=== PATIENT | male | born 1960 | race Hispanic/Latino ===

== ENCOUNTER 2019-07-03 06:09 | Outpatient (CLI) | payer OTHER ==
[2019-07-03 11:02] LABS: #Eosinphils 0.1 thou/uL (0.0-0.7); #Lymphocytes 1.1 thou/uL (1.20-3.40); #Monocytes 0.5 thou/uL (0.11-0.59); #Neutrophils 3.7 thou/uL (1.40-6.50); %Basophils 0.7 % (0.0-1.0); %Eosinophils 1.8 % (0.0-10.0); %Monocytes 9.2 % (0.0-10.0); %Neutrophils 68.4 % (42.0-75.0); Hemoglobin 15.3 g/dL (14.0-18.0); Mean Corpuscular HGB CONC 33.7 g/dL (32.0-36.0); Mean Corpuscular Hemoglobin 29.4 pg (27.0-31.0); Mean Corpuscular Volume 87.3 fL (78.0-98.0); Mean Platelet Volume 7.8 fL (7.4-10.4); Platelet Count 218 thou/uL (130-400); RBC Distribution Width 13.3 % (11.5-14.5); White Blood Cell (WBC) Count 5.4 thou/uL (4.8-10.8)
[2019-07-03 11:18] LABS: Anion Gap 15 mmol/L (10-20); BUN (Urea Nitrogen) 16 mg/dL (8.4-25.7); Calc. Creatinine Clearance 0 mL/min (70-130); Carbon Dioxide 19 mmol/L (22-29); Chloride 104 mmol/L (98-107); Estimated GFR-MDRD 86; Glucose 142 mg/dL (70-105); Sodium 134 mmol/L (136-145)
[2019-07-03 18:41] LABS: SARS-CoV-2 MS2 Positive; SARS-CoV-2 N Gene Negative; SARS-CoV-2 S Gene Negative; SARS-CoV-2 orf1ab Negative
--- NOTE | 2019-07-03 21:09 | EKG ---
Test Reason : Blood Pressure : / mmHG Vent. Rate : 064 BPM Atrial Rate : 064 BPM P-R Int : 162 ms QRS Dur : 088 ms QT Int : 386 ms P-R-T Axes : 031 029 015 degrees QTc Int : 398 ms Normal sinus rhythm Normal ECG Confirmed by Winston GARCIA ([id number] on 07/03/2019 9:09:11 PM Referred By: CHENTE Confirmed By:Winston GARCIA
== END 2019-07-03 06:10 | disposition home or self-care (01) ==
LOC: LABBT 06:09
PROVIDERS: ATTEND Surgery
DX: Z01.818 Encounter for other preprocedural examination (principal); Z11.59 Encounter for screening for other viral diseases; K29.00 Acute gastritis without bleeding; K95.09 Other complications of gastric band procedure
CPT/HCPCS: 80048; 85025; 87635; 93005; 93010; U0003

== ENCOUNTER 2019-07-04 10:24 | Day surgery (SDC) | payer OTHER ==
[2019-07-03 08:36] VITALS: BMI 37.4
[2019-07-04] MEDS ORDERED: Lidocaine 1% w/Epinephrine 1:100K 20 ML VIAL ONE (11:45)
[2019-07-04] MEDS ORDERED: Bupivacaine 0.25% HCL 30 ML VIAL ONE (11:45)
[2019-07-04] MEDS ORDERED: Fentanyl 100 MCG/2 ML VIAL ONE ×3 (12:37→14:20)
[2019-07-04] MEDS ORDERED: SUGAMMADEX SODIUM 200 MG/2 ML VIAL ONE (12:37)
[2019-07-04] MEDS ORDERED: Glycopyrrolate 0.2 MG/ML 5 ML SYRINGE ONE (16:05)
[2019-07-04] MEDS ORDERED: Lidocaine 1% PF 5 ML VIAL ONE (16:05)
[2019-07-04] MEDS ORDERED: Ondansetron PF 4 MG/2 ML Vial ONE (16:05)
[2019-07-04] MEDS ORDERED: PROPOFOL 200 MG/20 ML VIAL ONE (16:05)
[2019-07-04] MEDS ORDERED: Rocuronium Bromide 10 MG/ML (10ML VIAL) ONE (16:05)
[2019-07-04] MEDS ORDERED: Labetalol HCl 100 MG/20 ML VIAL ONE (16:05)
[2019-07-04] MEDS ORDERED: Dexamethasone 20 MG/5 ML VIAL ONE (16:05)
--- NOTE | 2019-07-04 20:14 | OP ---
DATE OF PROCEDURE: 07/04/2019 PREOPERATIVE DIAGNOSIS: Lap band dysfunction, esophagitis POSTOPERATIVE DIAGNOSIS: Lap band dysfunction, esophagitis. PROCEDURES PERFORMED: Removal of lap band and subcutaneous port, laparoscopic lysis of adhesions. ANESTHESIA: General. ESTIMATED BLOOD LOSS: Minimal. COMPLICATIONS: None. SPECIMENS: None. FINDINGS: Adhesions to previous mesh. DESCRIPTION OF PROCEDURE: The patient was taken to the operating room and laid supine on the operating room table. After general anesthetic was obtained, the abdomen was shaved, prepped, and draped in a sterile fashion. Left subcostal 5 mm Optiview trocar was placed in usual fashion without injury and high-flow pneumoperitoneum was obtained. An upper midline 2 right upper quadrant 5 mm ports as well as a 12 mm port was placed in the upper abdomen. The liver was retracted as the tissues over the top of the lap band buckle are cauterized exposing the buckle. The band was able to be unbuckled. The tubing was cut as it exits the abdomen. The lap band was able to be taken from behind the stomach and it was removed from the 12 mm trocar site. This trocar site was closed using GraNee needle and 0 Vicryl tie. There was no bleeding in the abdomen. The 12 mm trocar site was closed using GraNee needle and 0 Vicryl tie. All port sites were infiltrated using local anesthetic. All ports were removed under camera visualization. Pneumoperitoneum was let down. Lap band port site was opened and the lap band port was removed from the muscle. The lap band and port were re-created on the back table. All ports appeared to be accounted for. All incisions were irrigated and closed using 3-0 Vicryl, 4-0 Monocryl and Dermabond. The patient was sent to Recovery in stable condition. All instrument counts, needle counts, and lap counts were correct. Job ID: [id number]
== END 2019-07-04 16:05 | disposition home or self-care (01) ==
LOC: SDC 10:24
PROVIDERS: ATTEND Surgery
PROC: 0DP64CZ Removal of Extraluminal Device from Stomach, Percutaneous Endoscopic Approach (ICD-10-PCS; principal; 2019-07-04)
DX: K95.09 Other complications of gastric band procedure (principal); K66.0 Peritoneal adhesions (postprocedural) (postinfection); K29.00 Acute gastritis without bleeding; K21.0 Gastro-esophageal reflux disease with esophagitis; I10 Essential (primary) hypertension; E66.9 Obesity, unspecified; Z68.37 Body mass index [BMI] 37.0-37.9, adult; Z79.899 Other long term (current) drug therapy; Z90.49 Acquired absence of other specified parts of digestive tract
CPT/HCPCS: J0690; J1100; J2001; J2405; J2704; J3010; S0020

== ENCOUNTER 2020-01-31 12:30 | Emergency (ER) | payer OTHER ==
[2020-01-31] MEDS ORDERED: Acetaminophen 500 MG TAB ONE (14:55)
[2020-01-31 15:34] LABS: Hemoglobin 16.3 g/dL (14.0-18.0); Mean Corpuscular HGB CONC 33.9 g/dL (32.0-36.0); Mean Corpuscular Hemoglobin 29.4 pg (27.0-31.0); Mean Corpuscular Volume 86.7 fL (78.0-98.0); RBC Distribution Width 12.8 % (11.5-14.5); Red Blood Cell (RBC) Count 5.55 mill/uL (4.70-6.10); White Blood Cell (WBC) Count 4.5 thou/uL (4.8-10.8)
[2020-01-31 15:35] LABS: #Lymphocytes 0.9 thou/uL (1.20-3.40); #Monocytes 0.4 thou/uL (0.11-0.59); #Neutrophils 3.2 thou/uL (1.40-6.50); %Basophils 0.4 % (0.0-1.0); %Eosinophils 0.2 % (0.0-10.0); %Lymphocytes 20.1 % (21.0-51.0); %Monocytes 8.7 % (0.0-10.0); %Neutrophils 70.5 % (42.0-75.0)
--- NOTE | 2020-01-31 15:48 | RAD ---
Exam: Chest one view HISTORY:Cough. Shortness of breath and fever. Negative COVID test. Comparison: None FINDINGS: Cardiac silhouette: Normal Aorta: Unremarkable Pulmonary vessels: Normal Costophrenic angles: Clear LUNGS: Patchy interstitial and alveolar opacities in the left and right perihilar region. Lungs are s lightly diminished. Pneumothorax: None Osseous abnormalities: None IMPRESSION: Bilateral perihilar interstitial and alveolar opacities. Correlate for infiltrate.
[2020-01-31 15:59] LABS: MDiff Complete? YES; Platelet Count 118 thou/uL (130-400); Platelet Morphology Comment Appears Decreased; Polychromasia SLIGHT = 2-3 cells (100X) (0-2/hpf)
[2020-01-31 16:30] LABS: Alkaline Phosphatase 64 U/L (40-110)
[2020-01-31 16:33] LABS: ALT (SGPT) 19 U/L (8-55)
[2020-01-31 16:37] LABS: AST (SGOT) 35 U/L (5-34); Anion Gap 19 mmol/L (10-20); BUN (Urea Nitrogen) 24 mg/dL (8.4-25.7); Bilirubin, Total 0.5 mg/dL (0.2-1.2); Calc. Creatinine Clearance 0 mL/min (70-130); Calcium 8.5 mg/dL (7.8-10.44); Carbon Dioxide 17 mmol/L (22-29); Chloride 99 mmol/L (98-107); Globulin 3.5 g/dL (2.4-3.5); Glucose 133 mg/dL (70-105); Potassium 4.5 mmol/L (3.5-5.1); Protein, Total 7.5 g/dL (6.0-8.3); Sodium 130 mmol/L (136-145)
[2020-01-31] MEDS ORDERED: Dexamethasone 10 MG/ML VIAL ONE (17:48)
--- NOTE | 2020-02-02 14:50 | EKG ---
Test Reason : Blood Pressure : / mmHG Vent. Rate : 091 BPM Atrial Rate : 091 BPM P-R Int : 164 ms QRS Dur : 076 ms QT Int : 358 ms P-R-T Axes : 050 003 002 degrees QTc Int : 440 ms Normal sinus rhythm Normal ECG Confirmed by TI ENCARNACION M.D. ([id number]), subeditor EDWIN KATHLEEN ([id number]) on 02/02/2020 2:50:19 PM Referred By: Confirmed By:TI ENCARNACION M.D.
== END 2020-01-31 18:13 | disposition home or self-care (01) ==
LOC: ERS 12:30
DX: U07.1 COVID-19 (principal); J12.89 Other viral pneumonia; I10 Essential (primary) hypertension; Z79.899 Other long term (current) drug therapy
CPT/HCPCS: 71045; 80053; 83880; 84484; 85025; 93005; 96374; J1100

== ENCOUNTER 2020-02-02 20:37 | Inpatient (IN) | payer OTHER ==
[~2020-02-02 20:37] MED LIST: Iopamidol-370 76% 500 ML 1 ML ONE
[2020-02-02] MEDS ORDERED: Piperacillin/Tazobactam 4.5 GM VIAL ONE (21:11)
[2020-02-02 21:24] LABS: Hemoglobin 15.9 g/dL (14.0-18.0); Mean Corpuscular HGB CONC 34.8 g/dL (32.0-36.0); Mean Corpuscular Hemoglobin 29.3 pg (27.0-31.0); Mean Corpuscular Volume 84.3 fL (78.0-98.0); RBC Distribution Width 12.8 % (11.5-14.5); Red Blood Cell (RBC) Count 5.42 mill/uL (4.70-6.10)
[2020-02-02 21:30] LABS: ALT (SGPT) 20 U/L (8-55); AST (SGOT) 28 U/L (5-34); Acetaminophen Less than 6.0 mcg/mL (10.0-30.0); Albumin 4.1 g/dL (3.5-5.0); Alcohol Less than 10 mg/dL (Less than 10); Alkaline Phosphatase 70 U/L (40-110); Anion Gap 21 mmol/L (10-20); BUN (Urea Nitrogen) 33 mg/dL (8.4-25.7); Bilirubin, Total 0.5 mg/dL (0.2-1.2); Calc. Creatinine Clearance 0 mL/min (70-130); Calcium 8.7 mg/dL (7.8-10.44); Carbon Dioxide 18 mmol/L (22-29); Chloride 100 mmol/L (98-107); Globulin 2.9 g/dL (2.4-3.5); Glucose 180 mg/dL (70-105); Lipase 68 U/L (8-78); Potassium 3.9 mmol/L (3.5-5.1); Salicylate Less than 8.0 mg/dL (15.0-30.0); Sodium 135 mmol/L (136-145)
[2020-02-02 21:31] LABS: Band 15 % (5-11); Lymphocytes 15 % (21-51); MDiff Complete? YES; Mean Platelet Volume 8.8 fL (7.4-10.4); Monocytes 1 % (0-10); Neutrophil 69 % (42-75); Platelet Count 170 thou/uL (130-400); White Blood Cell (WBC) Count 10.1 thou/uL (4.8-10.8)
--- NOTE | 2020-02-02 21:47 | RAD ---
EXAM: CHEST ONE VIEW HISTORY: Shortness of breath, fever, headache. Cough. COMPARISON: 01/31/2020 FINDINGS: Cardiac silhouette is magnified by projection. Again noted are patchy interstitial and alveolar paren chymal opacities in the left mid lung zone and left lung base. There are now minimal patchy parenchymal airspace densities present in the right midlung zone. No other interval change. IMPRESSION: 1. Interstitial and patchy parenchymal airspace opacities within the lungs bilaterally which do appea r mildly increased. Findings are worrisome for infectious process and possibly atypical infectious process. Covid pneumonia in the correct clinical scenario is a differential consideration.
[2020-02-02] MEDS ORDERED: Vancomycin 1 GM/200 ML BAG ONE (22:04)
--- NOTE | 2020-02-02 22:18 | CT ---
EXAM: CT Aortic Dissection Protocol 3-D reconstructions PROVIDED CLINICAL HISTORY: Chest pain and abdominal pain. Nausea. COMPARISON: None FINDINGS: The thoracic and abdominal aorta are normal in caliber without evidence of an aortic dissection. Mini mal vascular calcifications are seen in the aortic arch as well as involving the iliac arteries. There is eccentric atherosclerotic plaque seen within the proximal superior mesenteric artery which d oes result in mild luminal narrowing. The celiac and inferior mesenteric arteries are patent. There are at least 3 patent right renal arteries with 2 right patent renal arteries. Iliac arteries and bilateral common femoral arteries as well as the visualized proximal profunda femo ral and superficial femoral arteries are patent. Lung apices are not imaged on this exam. There are patchy groundglass densities seen within the lungs bilaterally with associated linear parenchymal densities as well. Findings are suggestive of Covid pneumonia. No pleural effusion is identified. There is mild soft tissue prominence in each hilar region which may related to reactive lymphadenopat hy. Liver demonstrates diminished attenuation suggesting fatty infiltration. Postcholecystectomy changes are noted. The spleen, pancreas, bilateral adrenal glands, and urinary bladder demonstrate a normal CT appearanc e. Colonic diverticulosis is present involving the descending colon. 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 Postoperative changes of a loop of small bowel in the anterior abdomen are noted with mild dilatation of this loop of bowel. Rem aining loops of small bowel are normal in caliber. Metallic densities in the anterior abdomen likely related to mesh material. No free fluid, fluid collection, or lymphadenopathy is seen in the abdomen or pelvis. Degenerative changes are seen in the spine. IMPRESSION: 1. Parenchymal lung changes which have the appearance most suggestive of Covid pneumonia. 2. Thoracic and abdominal aorta are normal in caliber without evidence of an aortic dissection. 3. Mild fatty infiltration the liver. 4. Postcholecystectomy changes. 5. Postoperative changes anterior abdomen as well as postoperative changes involving a loop of small bowel. 6. Colonic diverticulosis. 7. 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
[2020-02-02 22:34] LABS: SARS-CoV-2 NAA Rapid Test DETECTED (NotDetected)
[2020-02-02] MEDS ORDERED: Enoxaparin Sodium 30 MG/0.3 ML SYRINGE ONE ×2 (22:55→23:18)
[2020-02-02] MEDS ORDERED: Enoxaparin Sodium 100 MG/ML SYRINGE ONE (22:55)
[2020-02-02] MEDS ORDERED: Dexamethasone 10 MG/ML VIAL ONE (23:02)
[2020-02-02] MEDS ORDERED: Enoxaparin Sodium 80 MG/0.8 ML SYRINGE ONE (23:20)
[2020-02-02] MEDS ORDERED: Ondansetron PF 4 MG/2 ML Vial IVP PRN (23:58)
[2020-02-02] MEDS ORDERED: Ondansetron ODT 4 MG TAB PO PRN (23:58)
[2020-02-03 00:01] LABS: Lactic Acid 1.5 mmol/L (0.5-2.2)
[2020-02-03 01:48] LABS: Bilirubin Negative (Negative); Blood, Urine Negative (Negative); Clarity Clear (Clear); Glucose, Urine (Dipstick) 100 mg/dL (Negative); Ketone, Urine Negative (Negative); Leukocyte Negative Leu/uL (Negative); Nitrite Negative (Negative); Protein, Urine (Dipstick) Negative (Neg-Trace); Specific Gravity, Urine 1.038 (1.002-1.036); Urobilinogen Normal mg/dL (Less than 2); pH, Urine 5.5 (5.0-9.0)
[2020-02-03 02:02] LABS: Amphetamine Not Detected (NotDetected); Barbiturates Screen Not Detected (NotDetected); Benzodiazepine Screen Not Detected (NotDetected); Cocaine Metabolite Screen Not Detected (NotDetected); Medtox Control Line Valid? VALID (VALID); Medtox Reader # READER 4; Methadone Not Detected (NotDetected); Methamphetamine Not Detected (NotDetected); Opiate Screen Not Detected (NotDetected); Oxycodone Screen Not Detected (NotDetected); Phencyclidine (PCP) Not Detected (NotDetected); THC/Cannabinoid Screen Not Detected (NotDetected); Tricyclic Screen Not Detected (NotDetected)
--- NOTE | 2020-02-03 02:23 | PDOC.HHP ---
Hospitalist HPI - History of Present Illness Generalized weakness, syncope History of Present Illness: This is a 59-year-old male patient With a history of hypertension, hernia who presents with chest discomfort and abdominal pain for the past couple of days. He notes that his had tested positive for Covid couple of weeks ago. His test came out positive in the ED today Given his discomfort in his chest and abdomen he presented to the ED for further evaluation this evening. While in the waiting room he had a syncopal event which he is not aware of. He was noted to be hypotensive with initial BP 57/39 and started on IV fluids with good response. He was otherwise slightly febrile with temperature of 100.4, pulse was 81-87, respiratory rate ranging between 25 and 27, saturating 100% on room air. CBC was generally unremarkable BMP noted an anion gap Of 17, creatinine 1.67 from a baseline of 1.17 on 01/31/2020 urine was not indicative of UTI, urine drug screen was negative, Covid test turned out positive however D-dimer was within normal limits. Chest x-ray was suggestive of bilateral infiltrates concerning for Covid. There was an initial concern of possible dissection and he had a CTA which ruled out dissection. At the time of my evaluation patient was lying comfortably in bed he has mild chest discomfort. He admits generalized malaise and shortness of breath but however significantly improved. In the ED he was started on Dexamethasone, enoxaparin, vancomycin and Zosyn. He received 30 mils per KG bolus IV fluids due to concern for sepsis Hospitalist ROS - Review of Systems Constitutional: reports: fever, weakness, malaise. denies: chills, sweats Respiratory: reports: shortness of breath, hemoptysis, SOB with excertion. denies: cough Cardiovascular: reports: chest pain, palpitations Gastrointestinal: reports: abdominal pain. denies: nausea, vomiting, diarrhea, constipation Genitourinary: denies: dysuria, frequency, incontinence Neurological: denies: weakness, numbness, incoordination All other systems reviewed; all pertinent +/- noted in HPI/Subj - Medication Medications: Kindly refer to ambulatory order list He has no known drug allergies Hospitalist History - Past Medical History Cardiac: reports: HTN Gastrointestinal: reports: Gastritis - Past Surgical History Past Surgical History: reports: Other Other Surgical History: Gastric banding, removal of lab band - Family History Family History: reports: no pertinent history - Social History Smoking Status: Never smoker Alcohol: reports: None Drugs: reports: none Living Situation: With Family - Exam General Appearance: awake alert General - other findings: Obese Eye: PERRL, anicteric sclera Heart: RRR, no murmur, no gallops, no rubs Respiratory - other findings: Reduced air entry bilaterally, scattered wheezes, rhonchi Gastrointestinal: soft, non-tender, non-distended, normal bowel sounds Gastrointestinal - other findings: Abdomen is obese, surgical scar in the epig astrium. Extremities: no cyanosis, no clubbing, no edema Neurological: cranial nerve grossly intact, normal sensation to touch, no weakness Psychiatric: normal affect, normal behavior, A&O x 3 Hospitalist Results - Labs Result Diagrams: 02/03/20 03:18 02/03/20 03:18 Lab results: WBC 10.1 thou/uL (4.8-10.8) 02/02/20 20:56 Hgb 15.9 g/dL (14.0-18.0) 02/02/20 20:56 Hct 45.7 % (42.0-52.0) 02/02/20 20:56 MCV 84.3 fL (78.0-98.0) 02/02/20 20:56 Plt Count 170 thou/uL (130-400) 02/02/20 20:56 Band Neuts % (Manual) 15 % (5-11) H 02/02/20 20:56 Sodium 135 mmol/L (136-145) L 02/02/20 20:56 Potassium 3.9 mmol/L (3.5-5.1) 02/02/20 20:56 Chloride 100 mmol/L (98-107) 02/02/20 20:56 Carbon Dioxide 18 mmol/L (22-29) L 02/02/20 20:56 BUN 33 mg/dL (8.4-25.7) H 02/02/20 20:56 Creatinine 1.67 mg/dL (0.7-1.3) H 02/02/20 20:56 Glucose 180 mg/dL (70-105) H 02/02/20 20:56 Lactic Acid 1.5 mmol/L (0.5-2.2) 12/19/20 23:38 Calcium 8.7 mg/dL (7.8-10.44) 02/02/20 20:56 Total Bilirubin 0.5 mg/dL (0.2-1.2) 02/02/20 20:56 AST 28 U/L (5-34) 02/02/20 20:56 ALT 20 U/L (8-55) 02/02/20 20:56 Alkaline Phosphatase 70 U/L (40-110) 02/02/20 20:56 Troponin I 0.023 ng/mL (< 0.028) 02/02/20 20:56 Serum Total Protein 7.0 g/dL (6.0-8.3) 02/02/20 20:56 Albumin 4.1 g/dL (3.5-5.0) 02/02/20 20:56 Lipase 68 U/L (8-78) 02/02/20 20:56 Urine Ketones Negative mg/dL (Negative) 02/03/20 01:20 Urine Blood Negative (Negative) 02/03/20 01:20 Urine Nitrite Negative (Negative) 02/03/20 01:20 Ur Leukocyte Esterase Negative Jose/uL (Negative) 02/03/20 01:20 Hospitalist H&P A/P - Plan Plan: This is a 59-year-old male patient with a history of hypertension presenting with worsening malaise, shortness of breath and syncopal event at presentation. He tested positive for Covid 19 with suggestive infiltrates on chest x-ray. Possible sepsis Hypotension with tachypnea and fever This may be due to Covid Blood cultures have been drawn Started on vancomycin and Zosyn We will continue antibiotics for nowfollow-up on blood cultures Appreciate ID input Covid pneumonia Received dexamethasone in ED He has mild fever with general malaise. We will start on zinc and vitamins Hold remdesivir as he does not meet criteria Consider statin convalescent plasma Consult ID to help decide initiation of remdesivir/plasma Hypotension Initial concerns for PE however D-dimer is within normal range PE is probably unlikely although possible in the setting of Covid We will hold CTA for now given prior contrast exposure for dissection protocol Hold full dose anticoagulation Chest pain Likely due to pneumonia from Covid Does not appear to have ACS Troponin was negative Syncope Unclear etiology Resolved with IV fluid We will monitor telemetry DVT prophylaxisLovenox CODE STATUSfull code
[2020-02-03 03:39] LABS: Anion Gap 16 mmol/L (10-20); BUN (Urea Nitrogen) 29 mg/dL (8.4-25.7); Calc. Creatinine Clearance 0 mL/min (70-130); Calcium 7.4 mg/dL (7.8-10.44); Carbon Dioxide 15 mmol/L (22-29); Chloride 105 mmol/L (98-107); Glucose 281 mg/dL (70-105); Potassium 3.6 mmol/L (3.5-5.1); Sodium 132 mmol/L (136-145)
[2020-02-03 04:06] LABS: #Lymphocytes 0.3 thou/uL (1.20-3.40); #Monocytes 0.2 thou/uL (0.11-0.59); #Neutrophils 4.9 thou/uL (1.40-6.50); %Basophils 0.2 % (0.0-1.0); %Eosinophils 0.5 % (0.0-10.0); %Lymphocytes 5.6 % (21.0-51.0); %Monocytes 3.7 % (0.0-10.0); %Neutrophils 90.1 % (42.0-75.0); Hemoglobin 14.5 g/dL (14.0-18.0); Mean Corpuscular HGB CONC 34.5 g/dL (32.0-36.0); Mean Corpuscular Hemoglobin 29.7 pg (27.0-31.0); Mean Corpuscular Volume 85.9 fL (78.0-98.0); Mean Platelet Volume 8.1 fL (7.4-10.4); Platelet Count 107 thou/uL (130-400); Platelet Morphology Comment Appears Decreased; RBC Distribution Width 12.9 % (11.5-14.5); Red Blood Cell (RBC) Count 4.89 mill/uL (4.70-6.10); White Blood Cell (WBC) Count 5.5 thou/uL (4.8-10.8)
[2020-02-03 05:05] VITALS: BMI 37.5
--- NOTE | 2020-02-03 05:52 | PDOC.FMACP ---
Advance Care Planning - Note Summary: Advanced Care Planning was discussed. The diagnosis, prognosis and goals of care were discussed. Surrogate decision maker is his . Code status is full code
[2020-02-03] MEDS: Piperacillin/Tazobactam 4.5 GM in Sodium Chloride 0.9% 100 ML IVPB SCH ×2 (06:21→16:30)
[2020-02-03] MEDS: Ascorbic Acid 500 mg Chewable Tablet PO SCH (08:18)
[2020-02-03] MEDS: Enoxaparin Sodium 40 MG/0.4 ML SYRINGE SC SCH (08:18)
[2020-02-03] MEDS: Cholecalciferol (Vitamin D3) 400 UNITS TAB PO SCH (08:19)
[2020-02-03] MEDS: Zinc Sulfate 220 MG CAP PO SCH (08:19)
[2020-02-03] MEDS ORDERED: Enoxaparin Sodium 40 MG/0.4 ML SYRINGE SC SCH (09:00)
[2020-02-03] MEDS ORDERED: Dexamethasone 4 mg/ml Vial SLOW IVP SCH (09:00)
--- NOTE | 2020-02-03 12:02 | PDOC.BPN ---
- Brief Progress Note Encounter Date: 02/03/20 Encounter Time: 12:00 F/u: COVID The patient reports mild improvement. He says he had chest pain which resolved. He is still coughing a lot, complains of mostly a dry cough. He ambulated to the bathroom without dizziness or lightheadedness. He complains of a headache and is requesting tylenol General: patient alert, awake, oriented times three. Appears relatively tachypneic CV: RRR, no murmurs, rubs, gallops Lungs: diminished breath sounds bilaterally Abdomen: +BS, soft, nontender, nondistended Extremities: no edema Imaging: CT dissection: mild fatty liver. Colonic diverticulosis. Incomplete malrotatio nof the bowel. Chest X ray: interstitial and patchy parenchymal opacities within the lungs bilaterally This is a 59 year old male with past medical history of hypertension who presented with hypotension and syncopal episode, chest pain and abdominal pain, recently COVID+ #Sepsis secondary to pneumonia (COVID vs bacterial) #COVID infection - still has significant cough and bilateral lung opacities. Adding tessalon pearls scheduled. Not requiring oxygen, so will d/c IV steroids and switch to oral - started on IV zosyn due to fever and hypotension. Will continue for now and consider switching to oral antibiotics tomorrow - ID has been consulted as well for evaluation of remdesivir. Will discontinue convalescent plasma Hyponatremia - sodium down to 132, possibly from fluids. Will recheck tomorrow JESSICA - resolved, likely from hypotension Hypertension - will hold home medications for now Dispo: will monitor for 24 hours prior to discharging
[2020-02-03] MEDS ORDERED: Benzonatate 100 MG CAP PO SCH (12:15)
[2020-02-03] MEDS ORDERED: Pantoprazole 40 MG VIAL IVP SCH (12:15)
[2020-02-03] MEDS: Acetaminophen 325 MG TAB PO PRN (13:03)
--- NOTE | 2020-02-03 16:12 | CON ---
DATE OF CONSULTATION: REASON FOR CONSULTATION: COVID pneumonia. HISTORY OF PRESENT ILLNESS: A 59-year-old patient with history of hypertension who has experienced worsening chest pain, dyspnea for the past 2 to 3 days, but he had nausea before that and felt general malaise for the past 7 to 8 days. There is intrafamilial spread of COVID with both and son being diagnosed with illness. Currently, he is on O2 supplementation by nasal cannula. He is lying in bed, does not feel very well. No headaches. Mild cough, some dyspnea. No chest pain. No abdominal pain or diarrhea. No genitourinary symptoms. No joint symptoms or neurological symptoms. PAST MEDICAL HISTORY: Hypertension; had a Lap-Band, which was removed in June 2015; obesity. 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 . ALLERGIES: NONE. CURRENT MEDICATIONS: 1. Decadron. 2. Zosyn. FAMILY HISTORY: COVID in family with intrafamilial spread. PHYSICAL EXAMINATION: VITAL SIGNS: T-max 99.9, blood pressure 140/80, heart rate 83, breathing 21 to 30 times a minute, 94% to 95% O2 saturations on room air right now. I had him sit up and stand up, but was able to do it, although had to put a little effort to it and he did not desaturate much. He has remained between 94% to 96% on room air only. SKIN: Normal peripheral IV access. GENERAL: He is voiding in the toilet. LYMPHATIC: No lymphadenopathy. HEENT: Normal. LUNGS: With a few crackles scattered at the bases. HEART: S1 and S2. Regular rate. ABDOMEN: Soft, not distended or tender. No ascites. No bladder distention. EXTREMITIES: No joint inflammatory activity. No edema. NEUROLOGIC: Nonfocal including cognitive function. LABORATORY DATA: White cell count 10.1 and 5.5, hemoglobin 14, platelets, 90% neutrophils. D-dimer 0.42. Creatinine was 1.67 down to 1.21. Liver profile normal. Albumin 4.1. Urinalysis normal. SARS-CoV-2 is detected. Influenza not detected and chest x-ray with diffuse bilateral infiltrates, moderate. ASSESSMENT: Hypertension with moderate SARS-CoV-2 infection. Continue Decadron. I do not think he is eligible for remdesivir at this point in time since he is not on nasal cannula supplementation. Monitor markers and still early in the disease process, so there is some space for deterioration going forward. Job ID: [id number] [facility]
[2020-02-03] MEDS: Benzonatate 100 MG CAP PO SCH ×2 (17:16→21:59)
[2020-02-03] MEDS: Pantoprazole 40 MG VIAL IVP SCH (21:59)
[2020-02-04] MEDS: Acetaminophen 325 MG TAB PO PRN ×2 (00:14→09:47)
[2020-02-04] MEDS ORDERED: hydrALAZINE 20 MG/ML VIAL SLOW IVP PRN (00:42)
[2020-02-04] MEDS ORDERED: Labetalol HCl 100 MG/20 ML VIAL SLOW IVP PRN (00:42)
[2020-02-04] MEDS: Diabetic Tussin 200 MG/10 ML UDCUP PO PRN ×3 (00:59→21:03)
[2020-02-04 04:59] LABS: #Lymphocytes 0.5 thou/uL (1.20-3.40); #Monocytes 0.4 thou/uL (0.11-0.59); %Eosinophils 0.1 % (0.0-10.0); %Lymphocytes 6.8 % (21.0-51.0); %Neutrophils 88.2 % (42.0-75.0); Hemoglobin 13.9 g/dL (14.0-18.0); Mean Corpuscular HGB CONC 34.1 g/dL (32.0-36.0); Mean Corpuscular Hemoglobin 29.3 pg (27.0-31.0); Mean Platelet Volume 7.7 fL (7.4-10.4); Platelet Count 168 thou/uL (130-400); RBC Distribution Width 12.7 % (11.5-14.5); Red Blood Cell (RBC) Count 4.76 mill/uL (4.70-6.10); White Blood Cell (WBC) Count 7.9 thou/uL (4.8-10.8)
[2020-02-04 05:16] LABS: Anion Gap 14 mmol/L (10-20); BUN (Urea Nitrogen) 26 mg/dL (8.4-25.7); Calc. Creatinine Clearance 114 mL/min (70-130); Calcium 7.9 mg/dL (7.8-10.44); Carbon Dioxide 21 mmol/L (22-29); Chloride 104 mmol/L (98-107); Glucose 215 mg/dL (70-105); Potassium 3.3 mmol/L (3.5-5.1); Sodium 136 mmol/L (136-145)
[2020-02-04] MEDS ORDERED: Potassium Chloride 20 MEQ TAB PO SCH (09:00)
[2020-02-04] MEDS: Cholecalciferol (Vitamin D3) 400 UNITS TAB PO SCH (09:48)
[2020-02-04] MEDS: Dexamethasone 4 MG TAB PO SCH (09:48)
[2020-02-04] MEDS: Benzonatate 100 MG CAP PO SCH ×3 (09:48→21:03)
[2020-02-04] MEDS: Enoxaparin Sodium 40 MG/0.4 ML SYRINGE SC SCH (09:48)
[2020-02-04] MEDS ORDERED: REMDESIVIR (EUA) 200 MG in Sodium Chloride 0.9% 250 ML 210 ML IV SCH (12:00)
--- NOTE | 2020-02-04 12:19 | CT ---
EXAM: CT Aortic Dissection Protocol 3-D reconstructions Pelvis W PROVIDED CLINICAL HISTORY: Chest pain and abdominal pain. Nausea. COMPARISON: None FINDINGS: The thoracic and abdominal aorta are normal in caliber without evidence of an aortic dissection. Mini mal vascular calcifications are seen in the aortic arch as well as involving the iliac arteries. There is eccentric atherosclerotic plaque seen within the proximal superior mesenteric artery which d oes result in mild luminal narrowing. The celiac and inferior mesenteric arteries are patent. There are at least 3 patent right renal arteries with 2 right patent renal arteries. Iliac arteries and bilateral common femoral arteries as well as the visualized proximal profunda femo ral and superficial femoral arteries are patent. Lung apices are not imaged on this exam. There are patchy groundglass densities seen within the lungs bilaterally with associated linear parenchymal densities as well. Findings are suggestive of Covid pneumonia. No pleural effusion is identified. There is mild soft tissue prominence in each hilar region which may related to reactive lymphadenopat hy. Liver demonstrates diminished attenuation suggesting fatty infiltration. Postcholecystectomy changes are noted. The spleen, pancreas, bilateral adrenal glands, and urinary bladder demonstrate a normal CT appearanc e. Colonic diverticulosis is present involving the descending colon. 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 Postoperative changes of a loop of small bowel in the anterior abdomen are noted with mild dilatation of this loop of bowel. Rem aining loops of small bowel are normal in caliber. Metallic densities in the anterior abdomen likely related to mesh material. No free fluid, fluid collection, or lymphadenopathy is seen in the abdomen or pelvis. Degenerative changes are seen in the spine. IMPRESSION: 1. Parenchymal lung changes which have the appearance most suggestive of Covid pneumonia. 2. Thoracic and abdominal aorta are normal in caliber without evidence of an aortic dissection. 3. Mild fatty infiltration of the liver. 4. Postcholecystectomy changes. 5. Postoperative changes anterior abdomen as well as postoperative changes involving a loop of small bowel. 6. Colonic diverticulosis. 7. 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 Transcribed Date/Time: 02/04/2020 12:19 PM
[2020-02-04] MEDS: Ascorbic Acid 500 mg Chewable Tablet PO SCH (13:17)
[2020-02-04] MEDS: Zinc Sulfate 220 MG CAP PO SCH (13:18)
[2020-02-04] MEDS: Pantoprazole 40 MG VIAL IVP SCH ×2 (13:18→21:03)
--- NOTE | 2020-02-04 13:59 | PDOC.HOSPP ---
- Subjective Encounter Date: 02/04/20 Subjective: F/u: COVID The patient states his cough improved significantly with tessalon pearls. It is still a dry cough. He is still very tachypneic. HIs room air sat was 88% per nursing, so he was placed on oxygen He had a fever this morning to 102 - Objective Vital Signs & Weight: Vital Signs (12 hours) Temp Pulse Resp BP BP Pulse Ox 02/04/20 10:19 93 L 02/04/20 09:55 102.2 F H 98 24 H 168/90 H 88 L 02/04/20 04:29 99.3 F 88 36 H 136/67 98 Weight Weight 239 lb 6.4 oz I&O: 02/03/20 02/04/20 02/05/20 06:59 06:59 06:59 Intake Total 619 Balance 619 Result Diagrams: 02/04/20 04:38 02/04/20 04:38 Hospitalist ROS - Review of Systems Constitutional: denies: fever, chills - Medication Medications: Active Medications Generic Name Dose Route Start Last Admin Trade Name Freq PRN Reason Stop Dose Admin Acetaminophen 650 mg 02/03/20 10:06 02/04/20 09:47 Acetaminophen 325 Mg Tab PO 650 mg Q6H PRN Administration Headache Ascorbic Acid 1,000 mg 02/03/20 09:00 02/04/20 13:17 Ascorbic Acid 500 Mg Chewable Tablet PO 1,000 mg DAILY SAMANTHA Administration Benzonatate 100 mg 02/03/20 15:00 02/04/20 09:48 Benzonatate 100 Mg Cap PO 100 mg TID SAMANTHA Administration Cholecalciferol 400 units 02/03/20 09:00 02/04/20 09:48 Cholecalciferol (Vitamin D3) 400 Units Tab PO 400 units DAILY SAMANTHA Administration Dexamethasone 6 mg 02/04/20 08:00 02/04/20 09:48 Dexamethasone 4 Mg Tab PO 6 mg QAM-WM SAMANTHA Administration Enoxaparin Sodium 40 mg 02/03/20 09:00 02/04/20 09:48 Enoxaparin Sodium 40 Mg/0.4 Ml Syringe SC 40 mg 0900 SAMANTHA Administration Guaifenesin 200 mg 02/04/20 00:43 02/04/20 05:41 Diabetic Tussin 200 Mg/10 Ml Udcup PO 200 mg Q4H PRN Administration Cough Pantoprazole Sodium 40 mg 02/03/20 21:00 02/04/20 13:18 Pantoprazole 40 Mg Vial IVP 40 mg Q12HR SAMANTHA Administration Zinc Sulfate 220 mg 02/03/20 09:00 02/04/20 13:18 Zinc Sulfate 220 Mg Cap PO 220 mg DAILY SAMANTHA Administration - Exam General Appearance: NAD, awake alert General - other findings: appears pale, fatigued ENT: normocephalic atraumatic, no oropharyngeal lesions Heart: RRR, no murmur, no gallops, no rubs Respiratory: CTAB, no wheezes Respiratory - other findings: very tachypneic Gastrointestinal: soft, non-tender, non-distended Extremities: no cyanosis, no clubbing, no edema Hosp A/P - Plan CT dissection: mild fatty liver. Colonic diverticulosis. Incomplete malrotatio nof the bowel. Chest X ray: interstitial and patchy parenchymal opacities within the lungs bilaterally This is a 59 year old male with past medical history of hypertension who presented with hypotension and syncopal episode, chest pain and abdominal pain, recently COVID+ #Sepsis secondary to pneumonia (COVID vs bacterial) #COVID infection - still has significant cough and bilateral lung opacities. Continue tessalon pearls scheduled. - continue oral dexamethasone. ID was consulted and plan to start remdesivir today. Zosyn discontinued 02/02 Hypokalemia - potassium 3.3, replaced with oral potassium and recheck tomorow Hyponatremia - sodium down to 132, possibly from fluids. Will recheck tomorrow JESSICA - resolved, likely from hypotension Hypertension - will hold home medications for now
[2020-02-04 14:47] LABS: ALT (SGPT) 18 U/L (8-55); AST (SGOT) 25 U/L (5-34)
--- NOTE | 2020-02-04 17:39 | PRG ---
DATE OF SERVICE: 02/04/2020 SUBJECTIVE: He was started on remdesivir today. He actually is feeling better, tells me, although he has a hard time in taking deep breaths without coughing. No abdominal pain. No diarrhea. OBJECTIVE: VITAL SIGNS: Still having fever of 102.2, BP 140/60, saturating at 95 with 2.5 L of nasal cannula O2 supplementation. LUNGS: Pretty tight, hard to get him to take deep breaths without coughing. He does have diffuse bilateral inspiratory crackles. HEART: S1, S2. Regular rate. ABDOMEN: Soft, not distended. LABORATORY DATA: White cell count 7.9, platelets 168. Lymphocytes are decreased. We need to submit CRP and ferritin levels. ASSESSMENT AND DISCUSSION: Hypertension, moderate SARS-CoV-2 infection. We will continue Decadron. He is now on nasal cannula, remdesivir. Monitor markers. Since it is early on in the course of illness, there is still space for deterioration going forward. We will hope that he turns around with Decadron and remdesivir. Job ID: [id number] [facility]
[2020-02-05] MEDS: Diabetic Tussin 200 MG/10 ML UDCUP PO PRN ×4 (03:44→16:36)
[2020-02-05 05:16] LABS: #Lymphocytes 0.5 thou/uL (1.20-3.40); #Monocytes 0.5 thou/uL (0.11-0.59); #Neutrophils 8.6 thou/uL (1.40-6.50); %Basophils 0.2 % (0.0-1.0); %Monocytes 5.2 % (0.0-10.0); %Neutrophils 89.5 % (42.0-75.0); Hemoglobin 14.1 g/dL (14.0-18.0); Mean Corpuscular Volume 85.3 fL (78.0-98.0); Mean Platelet Volume 7.6 fL (7.4-10.4); Platelet Count 208 thou/uL (130-400); RBC Distribution Width 12.8 % (11.5-14.5); Red Blood Cell (RBC) Count 4.88 mill/uL (4.70-6.10); White Blood Cell (WBC) Count 9.6 thou/uL (4.8-10.8)
[2020-02-05 05:32] LABS: ALT (SGPT) 14 U/L (8-55); AST (SGOT) 22 U/L (5-34); Albumin 3.4 g/dL (3.5-5.0); Alkaline Phosphatase 56 U/L (40-110); Anion Gap 14 mmol/L (10-20); BUN (Urea Nitrogen) 24 mg/dL (8.4-25.7); Bilirubin, Total 0.4 mg/dL (0.2-1.2); Calc. Creatinine Clearance 126 mL/min (70-130); Calcium 8.2 mg/dL (7.8-10.44); Carbon Dioxide 23 mmol/L (22-29); Chloride 104 mmol/L (98-107); Globulin 3.1 g/dL (2.4-3.5); Glucose 205 mg/dL (70-105); Potassium 3.8 mmol/L (3.5-5.1); Protein, Total 6.5 g/dL (6.0-8.3); Sodium 137 mmol/L (136-145)
[2020-02-05 05:36] LABS: ALT (SGPT) 16 U/L (8-55); AST (SGOT) 22 U/L (5-34); Albumin 3.4 g/dL (3.5-5.0); Alkaline Phosphatase 57 U/L (40-110); Bilirubin, Direct 0.2 mg/dL (0.1-0.3); Bilirubin, Total 0.4 mg/dL (0.2-1.2); Protein, Total 6.5 g/dL (6.0-8.3)
[2020-02-05] MEDS: Enoxaparin Sodium 40 MG/0.4 ML SYRINGE SC SCH (10:39)
[2020-02-05] MEDS: Dexamethasone 4 MG TAB PO SCH (10:39)
[2020-02-05] MEDS: Cholecalciferol (Vitamin D3) 400 UNITS TAB PO SCH (10:40)
[2020-02-05] MEDS: Ascorbic Acid 500 mg Chewable Tablet PO SCH (10:40)
[2020-02-05] MEDS: Benzonatate 100 MG CAP PO SCH ×3 (10:40→22:14)
[2020-02-05] MEDS: Zinc Sulfate 220 MG CAP PO SCH (10:40)
[2020-02-05] MEDS: Pantoprazole 40 MG VIAL IVP SCH (10:40)
[2020-02-05] MEDS: Acetaminophen 325 MG TAB PO PRN (10:51)
[2020-02-05] MEDS: REMDESIVIR (EUA) 100 MG in Sodium Chloride 0.9% 250 ML 230 ML IV SCH (13:31)
--- NOTE | 2020-02-05 14:50 | PDOC.HOSPP ---
- Subjective Encounter Date: 02/05/20 Encounter Time: 10:00 Subjective: F/u: COVID The patient appears much better today. He is sitting up in a chair and is not as tachypneic. His oxygen saturation is being weaned down to 4L. THe patient states he is coughing less He has a headache and thought it was related to his blood pressure, however this morning his pressure is only 124-130 without his medications. Discussed resuming if it increases further - Objective Vital Signs & Weight: Vital Signs (12 hours) Temp Pulse Resp BP BP BP Pulse Ox 02/05/20 13:25 97.8 F 65 32 H 125/74 99 02/05/20 13:08 02/05/20 11:00 94 L 02/05/20 10:06 99.5 F 80 20 133/74 100 02/05/20 04:20 26 H 96 02/05/20 03:37 99.1 F 88 42 H 157/76 H 95 02/05/20 03:33 42 H 87 L Pulse Ox Pulse Ox Pulse Ox 02/05/20 13:25 02/05/20 13:08 95 87 L 98 02/05/20 11:00 02/05/20 10:06 02/05/20 04:20 02/05/20 03:37 02/05/20 03:33 Weight Weight 239 lb 6.4 oz I&O: 02/04/20 02/05/20 02/06/20 06:59 06:59 06:59 Intake Total 619 1745 Output Total 785 Balance 619 960 Result Diagrams: 02/05/20 04:31 02/05/20 04:31 Hospitalist ROS - Review of Systems Constitutional: denies: fever, chills - Medication Medications: Active Medications Generic Name Dose Route Start Last Admin Trade Name Freq PRN Reason Stop Dose Admin Acetaminophen 650 mg 02/03/20 10:06 02/05/20 10:51 Acetaminophen 325 Mg Tab PO 650 mg Q6H PRN Administration Headache Ascorbic Acid 1,000 mg 02/03/20 09:00 02/05/20 10:40 Ascorbic Acid 500 Mg Chewable Tablet PO 1,000 mg DAILY SAMANTHA Administration Benzonatate 100 mg 02/03/20 15:00 02/05/20 10:40 Benzonatate 100 Mg Cap PO 100 mg TID SAMANTHA Administration Cholecalciferol 400 units 02/03/20 09:00 02/05/20 10:40 Cholecalciferol (Vitamin D3) 400 Units Tab PO 400 units DAILY SAMANTHA Administration Dexamethasone 6 mg 02/04/20 08:00 02/05/20 10:39 Dexamethasone 4 Mg Tab PO 6 mg QAM-WM SAMANTHA Administration Enoxaparin Sodium 40 mg 02/03/20 09:00 02/05/20 10:39 Enoxaparin Sodium 40 Mg/0.4 Ml Syringe SC 40 mg 0900 SAMANTHA Administration Guaifenesin 200 mg 02/04/20 00:43 02/05/20 13:34 Diabetic Tussin 200 Mg/10 Ml Udcup PO 200 mg Q4H PRN Administration Cough Remdesivir 100 mg/ Sodium 250 mls @ 250 mls/hr 02/05/20 12:00 02/05/20 13:31 Chloride IV 02/08/20 12:59 250 mls 1200 SAMANTHA Administration Pantoprazole Sodium 40 mg 02/03/20 21:00 02/05/20 10:40 Pantoprazole 40 Mg Vial IVP 40 mg Q12HR SAMANTHA Administration Zinc Sulfate 220 mg 02/03/20 09:00 02/05/20 10:40 Zinc Sulfate 220 Mg Cap PO 220 mg DAILY SAMANTHA Administration - Exam General Appearance: NAD, awake alert Eye: PERRL, anicteric sclera ENT: normocephalic atraumatic, no oropharyngeal lesions Neck: no JVD Heart: RRR, no murmur, no gallops, no rubs Respiratory - other findings: diminished breath sounds, difficult to hear b/c of coughing Gastrointestinal: soft, non-tender, non-distended Extremities: no cyanosis, no clubbing, no edema Skin: normal turgor, no lesions, no rashes Hosp A/P - Plan CT dissection: mild fatty liver. Colonic diverticulosis. Incomplete malrotatio nof the bowel. Chest X ray: interstitial and patchy parenchymal opacities within the lungs bilaterally This is a 59 year old male with past medical history of hypertension who presented with hypotension and syncopal episode, chest pain and abdominal pain, recently COVID+ #Sepsis secondary to pneumonia (COVID vs bacterial) #COVID infection - cough has improved. Continue tessalon pearls, dexamethasone. Continue day 2/5 of remdesivir Headache - likely viral. Tylenol prn and supportive care Hypertension -resume home meds if BP increases > 150 Hypokalemia- resolved Hyponatremia- resolved JESSICA- resolved, likely from hypotension
--- NOTE | 2020-02-05 17:56 | PQF ---
CLINICAL DOCUMENTATION CLARIFICATION FORM: Dear Dr. Navas Date: 02/05/2020 Please exercise your independent, professional judgment in responding to the clarification form. Clinical indicators are provided on the bottom of this form for your review. Please check appropriate box(es): [ X ] Acute Respiratory Failure: [ X] with Hypoxia [ ] with Hypercapnia [ ] Acute On Chronic Respiratory Failure: [ ] with Hypoxia [ ] with Hypercapnia [ ] Acute Respiratory Failure due to: (etiology) [ ] Respiratory Insufficiency [ ] Hypoxia [ ] Other diagnosis [ ] Unable to determine In addition, please specify: Present on Admission (POA): [ ] Yes [ X ] No [ ] Unable to determine For continuity of documentation, please document condition throughout progress notes and discharge summary. Thank You. To be completed by CDI/Coding staff for physician review: CLINICAL INDICATORS - SIGNS / SYMPTOMS / LABS / RESULTS AND LOCATION IN MR *02/02 Consult (Leatha) VS: breathing 21 to 30 times a minute, 94% to 95% O2 saturations on room air right now. *02/03 pn (Eloise) Subjective: he is still very tachypneic. His room air sat was 88% per nursing, so he was placed on oxygen *Nursing VS: (EMR) 02/03 0955: Resp 24 O2 sat 88 room air 1400: Resp 22 O2 sat 95 2L nc 02/04 0337: Resp:42 O2 sat 95 5L nc RISK FACTORS / RESULTS AND LOCATION IN MR H&P 02/02 (Affram) A/P: COVID pneumonia TREATMENTS / RESULTS AND LOCATION IN MR 02/03 pn (Eloise) Subjective: His room air sat was 88% per nursing, so he was placed on oxygen 02/03 pn (Eloise) A.P: Continue oral dexamethasone. ID was consulted and plan to start remdesivir today. Thank you, Roxane Ortiz RN, BSN Cell This is a permanent part of the Medical Record [facility]
[2020-02-06] MEDS: Diabetic Tussin 200 MG/10 ML UDCUP PO PRN ×2 (01:08→21:48)
[2020-02-06 05:37] LABS: ALT (SGPT) 20 U/L (8-55); AST (SGOT) 26 U/L (5-34); Albumin 3.3 g/dL (3.5-5.0); Alkaline Phosphatase 53 U/L (40-110); Bilirubin, Direct 0.2 mg/dL (0.1-0.3); Bilirubin, Total 0.5 mg/dL (0.2-1.2); Protein, Total 6.3 g/dL (6.0-8.3)
[2020-02-06 05:41] LABS: ALT (SGPT) 21 U/L (8-55); AST (SGOT) 26 U/L (5-34); Albumin 3.4 g/dL (3.5-5.0); Alkaline Phosphatase 52 U/L (40-110); Anion Gap 16 mmol/L (10-20); BUN (Urea Nitrogen) 29 mg/dL (8.4-25.7); Bilirubin, Total 0.5 mg/dL (0.2-1.2); Calc. Creatinine Clearance 144 mL/min (70-130); Calcium 7.8 mg/dL (7.8-10.44); Carbon Dioxide 23 mmol/L (22-29); Chloride 103 mmol/L (98-107); Globulin 2.4 g/dL (2.4-3.5); Glucose 245 mg/dL (70-105); Protein, Total 5.8 g/dL (6.0-8.3); Sodium 138 mmol/L (136-145)
[2020-02-06] MEDS: Ascorbic Acid 500 mg Chewable Tablet PO SCH (08:43)
[2020-02-06] MEDS: Zinc Sulfate 220 MG CAP PO SCH (08:43)
[2020-02-06] MEDS: Benzonatate 100 MG CAP PO SCH ×3 (08:43→21:48)
[2020-02-06] MEDS: Dexamethasone 4 MG TAB PO SCH (08:43)
[2020-02-06] MEDS: Cholecalciferol (Vitamin D3) 400 UNITS TAB PO SCH (08:44)
[2020-02-06] MEDS: Enoxaparin Sodium 40 MG/0.4 ML SYRINGE SC SCH (08:44)
[2020-02-06] MEDS: REMDESIVIR (EUA) 100 MG in Sodium Chloride 0.9% 250 ML 230 ML IV SCH (12:28)
--- NOTE | 2020-02-06 15:58 | PDOC.HOSPP ---
- Subjective Encounter Date: 02/06/20 Encounter Time: 12:00 Subjective: F/u: COVID The patient states he feels better. He was placed on 5L oxygen overnight because per patient, nursing had a difficult time getting an accurate oxygen sat. When I saw him he was 100% on 5L. The patient states he felt uncomfortable with this and it was too much pressure I weaned him down to room air and he desaturated to 86%. He was placed on 0.5L and was saturating 94%. He ambulated with PT yesterday His cough has improved some, but occurs when he takes a deep breath - Objective Vital Signs & Weight: Vital Signs (12 hours) Temp Pulse Resp BP Pulse Ox Pulse Ox Pulse Ox 02/06/20 14:00 96 90 L 02/06/20 11:04 98.1 F 65 22 H 132/79 96 02/06/20 08:58 98.6 F 62 24 H 117/69 98 02/06/20 06:00 97.9 F 66 30 H 129/63 88 L Pulse Ox 02/06/20 14:00 98 02/06/20 11:04 02/06/20 08:58 02/06/20 06:00 Weight Weight 239 lb 6.4 oz I&O: 02/05/20 02/06/20 02/07/20 06:59 06:59 06:59 Intake Total 1745 1450 Output Total 785 Balance 960 1450 Result Diagrams: 02/05/20 04:31 02/06/20 05:03 Hospitalist ROS - Review of Systems Constitutional: denies: fever, chills - Medication Medications: Active Medications Generic Name Dose Route Start Last Admin Trade Name Freq PRN Reason Stop Dose Admin Acetaminophen 650 mg 02/03/20 10:06 02/05/20 10:51 Acetaminophen 325 Mg Tab PO 650 mg Q6H PRN Administration Headache Ascorbic Acid 1,000 mg 02/03/20 09:00 02/06/20 08:43 Ascorbic Acid 500 Mg Chewable Tablet PO 1,000 mg DAILY SAMANTHA Administration Benzonatate 100 mg 02/03/20 15:00 02/06/20 08:43 Benzonatate 100 Mg Cap PO 100 mg TID SAMANTHA Administration Cholecalciferol 400 units 02/03/20 09:00 02/06/20 08:44 Cholecalciferol (Vitamin D3) 400 Units Tab PO 400 units DAILY SAMANTHA Administration Dexamethasone 6 mg 02/04/20 08:00 02/06/20 08:43 Dexamethasone 4 Mg Tab PO 6 mg QAM-WM SAMANTHA Administration Enoxaparin Sodium 40 mg 02/03/20 09:00 02/06/20 08:44 Enoxaparin Sodium 40 Mg/0.4 Ml Syringe SC 40 mg 0900 SAMANTHA Administration Guaifenesin 200 mg 02/04/20 00:43 02/06/20 01:08 Diabetic Tussin 200 Mg/10 Ml Udcup PO 200 mg Q4H PRN Administration Cough Remdesivir 100 mg/ Sodium 250 mls @ 250 mls/hr 02/05/20 12:00 02/06/20 12:28 Chloride IV 02/08/20 12:59 250 mls 1200 SAMANTHA Administration Pantoprazole Sodium 40 mg 02/05/20 21:00 02/06/20 08:44 Pantoprazole 40 Mg Tab PO 40 mg Q12HR SAMANTHA Administration Zinc Sulfate 220 mg 02/03/20 09:00 02/06/20 08:43 Zinc Sulfate 220 Mg Cap PO 220 mg DAILY SAMANTHA Administration - Exam General Appearance: NAD, awake alert Eye: PERRL, anicteric sclera ENT: normocephalic atraumatic, no oropharyngeal lesions Neck: no JVD Heart: RRR, no murmur, no gallops, no rubs Respiratory: CTAB, no wheezes, no rales, no ronchi Gastrointestinal: soft, non-tender, non-distended, normal bowel sounds Extremities: no cyanosis, no clubbing, no edema Skin: normal turgor, no lesions, no rashes Hosp A/P - Plan CT dissection: mild fatty liver. Colonic diverticulosis. Incomplete malrotatio nof the bowel. Chest X ray: interstitial and patchy parenchymal opacities within the lungs bilaterally This is a 59 year old male with past medical history of hypertension who presented with hypotension and syncopal episode, chest pain and abdominal pain, recently COVID+ #Sepsis secondary to pneumonia (COVID vs bacterial) # Acute hypoxic respiratory failure secondary to COVID Pneumonia #COVID infection - he has been weaned down to 0.5L of oxygen from 5L. Continue tessalon pearls, dexamethasone. On day 3/5 of remdesivir Headache -resolvingl. Tylenol prn and supportive care Hypertension -resume home meds if BP increases > 150 Hypokalemia- resolved Hyponatremia- resolved JESSICA- resolved, likely from hypotension Dispo: d/c hopefully on Tuesday
[2020-02-07 06:31] LABS: ALT (SGPT) 25 U/L (8-55); AST (SGOT) 23 U/L (5-34); Albumin 3.3 g/dL (3.5-5.0); Alkaline Phosphatase 54 U/L (40-110); Bilirubin, Direct 0.3 mg/dL (0.1-0.3); Bilirubin, Total 0.5 mg/dL (0.2-1.2); Protein, Total 6.3 g/dL (6.0-8.3)
[2020-02-07 06:44] LABS: ALT (SGPT) 25 U/L (8-55); AST (SGOT) 24 U/L (5-34); Albumin 3.3 g/dL (3.5-5.0); Alkaline Phosphatase 55 U/L (40-110); BUN (Urea Nitrogen) 33 mg/dL (8.4-25.7); Bilirubin, Total 0.5 mg/dL (0.2-1.2); Calc. Creatinine Clearance 142 mL/min (70-130); Calcium 8.1 mg/dL (7.8-10.44); Chloride 104 mmol/L (98-107); Glucose 251 mg/dL (70-105); Potassium 4.1 mmol/L (3.5-5.1); Protein, Total 6.3 g/dL (6.0-8.3); Sodium 137 mmol/L (136-145)
[2020-02-07 07:15] LABS: Carbon Dioxide 21 mmol/L (22-29)
[2020-02-07 08:04] LABS: Anion Gap 16 mmol/L (10-20)
[2020-02-07] MEDS: Dexamethasone 4 MG TAB PO SCH (09:00)
[2020-02-07] MEDS: Ascorbic Acid 500 mg Chewable Tablet PO SCH (09:01)
[2020-02-07] MEDS: Enoxaparin Sodium 40 MG/0.4 ML SYRINGE SC SCH (09:01)
[2020-02-07] MEDS: Benzonatate 100 MG CAP PO SCH ×4 (09:01→20:17)
[2020-02-07] MEDS: Cholecalciferol (Vitamin D3) 400 UNITS TAB PO SCH (09:01)
[2020-02-07] MEDS: Zinc Sulfate 220 MG CAP PO SCH (09:03)
[2020-02-07] MEDS: REMDESIVIR (EUA) 100 MG in Sodium Chloride 0.9% 250 ML 230 ML IV SCH (13:08)
--- NOTE | 2020-02-07 17:46 | PDOC.HOSPP ---
- Subjective Encounter Date: 02/07/20 Encounter Time: 08:00 Subjective: F/u: COVID The patient was back on 4L nasal cannula overnight, for unclear reason. The patient again stated this was too much pressure for him and requested to be weaned down On 0.5L, the patient was around 91-93% and slightly tachypneic. On 1L he was 94% and felt more comfortable. He has dizziness when moving around. Orthostatics negative, BP was 160 Upon ambulation, patient desaturated to 82% on 1L - Objective Vital Signs & Weight: Vital Signs (12 hours) Temp Pulse Resp BP BP Pulse Ox Pulse Ox 02/07/20 14:37 66 128/62 02/07/20 14:35 63 123/64 02/07/20 14:04 95 02/07/20 13:00 97.7 F 54 L 24 H 126/70 96 02/07/20 09:25 98.0 F 58 L 24 H 111/61 98 Pulse Ox Pulse Ox 02/07/20 14:37 02/07/20 14:35 02/07/20 14:04 88 L 96 02/07/20 13:00 02/07/20 09:25 Weight Weight 239 lb 6.4 oz I&O: 02/06/20 02/07/20 02/08/20 06:59 06:59 06:59 Intake Total 1450 1590 950 Output Total 1300 700 Balance 1450 290 250 Result Diagrams: 02/05/20 04:31 02/07/20 05:26 Hospitalist ROS - Review of Systems Constitutional: denies: fever, chills - Medication Medications: Active Medications Generic Name Dose Route Start Last Admin Trade Name Freq PRN Reason Stop Dose Admin Acetaminophen 650 mg 02/03/20 10:06 02/05/20 10:51 Acetaminophen 325 Mg Tab PO 650 mg Q6H PRN Administration Headache Ascorbic Acid 1,000 mg 02/03/20 09:00 02/07/20 09:01 Ascorbic Acid 500 Mg Chewable Tablet PO 1,000 mg DAILY SAMANTHA Administration Benzonatate 100 mg 02/03/20 15:00 02/07/20 17:25 Benzonatate 100 Mg Cap PO 100 mg TID SAMANTHA Administration Cholecalciferol 400 units 02/03/20 09:00 02/07/20 09:01 Cholecalciferol (Vitamin D3) 400 Units Tab PO 400 units DAILY SAMANTHA Administration Dexamethasone 6 mg 02/04/20 08:00 02/07/20 09:00 Dexamethasone 4 Mg Tab PO 6 mg QAM-WM SAMANTHA Administration Enoxaparin Sodium 40 mg 02/03/20 09:00 02/07/20 09:01 Enoxaparin Sodium 40 Mg/0.4 Ml Syringe SC 40 mg 0900 SAMANTHA Administration Guaifenesin 200 mg 02/04/20 00:43 02/06/20 21:48 Diabetic Tussin 200 Mg/10 Ml Udcup PO 200 mg Q4H PRN Administration Cough Remdesivir 100 mg/ Sodium 250 mls @ 250 mls/hr 02/05/20 12:00 02/07/20 13:08 Chloride IV 02/08/20 12:59 250 mls 1200 SAMANTHA Administration Pantoprazole Sodium 40 mg 02/05/20 21:00 02/07/20 09:01 Pantoprazole 40 Mg Tab PO 40 mg Q12HR SAMANTHA Administration Zinc Sulfate 220 mg 02/03/20 09:00 02/07/20 09:03 Zinc Sulfate 220 Mg Cap PO 220 mg DAILY SAMANTHA Administration - Exam General Appearance: NAD, awake alert Eye: PERRL, anicteric sclera ENT: normocephalic atraumatic, no oropharyngeal lesions Neck: no JVD Heart: RRR, no murmur, no gallops, no rubs Respiratory: CTAB, no wheezes, no rales, no ronchi Gastrointestinal: soft, non-tender, non-distended, normal bowel sounds Extremities: no cyanosis, no clubbing, no edema Neurological: cranial nerve grossly intact, normal sensation to touch, no weakness Hosp A/P - Plan CT dissection: mild fatty liver. Colonic diverticulosis. Incomplete malrotatio nof the bowel. Chest X ray: interstitial and patchy parenchymal opacities within the lungs bilaterally This is a 59 year old male with past medical history of hypertension who presented with hypotension and syncopal episode, chest pain and abdominal pain, recently COVID+ #Sepsis secondary to pneumonia (COVID vs bacterial) # Acute hypoxic respiratory failure secondary to COVID Pneumonia #COVID infection - he has been weaned down to 0.5L of oxygen from 5L. Continue tessalon pearls, dexamethasone. On day 4/5 of remdesivir Dizziness - unclear etiology, maybe from hypoxia. Will monitor Headache -resolving. Tylenol prn and supportive care Hypertension -resume home meds if BP increases > 150 Hypokalemia- resolved Hyponatremia- resolved JESSICA- resolved, likely from hypotension Dispo: d/c hopefully on Tuesday . Will place case management consult in case patient still needs oxygen by Tuesday
[2020-02-08 06:00] LABS: ALT (SGPT) 30 U/L (8-55); AST (SGOT) 25 U/L (5-34); Albumin 3.1 g/dL (3.5-5.0); Alkaline Phosphatase 51 U/L (40-110); Bilirubin, Direct 0.2 mg/dL (0.1-0.3); Bilirubin, Total 0.5 mg/dL (0.2-1.2); Calc. Creatinine Clearance 144 mL/min (70-130); Protein, Total 6.1 g/dL (6.0-8.3)
[2020-02-08] MEDS: Dexamethasone 4 MG TAB PO SCH (08:54)
[2020-02-08] MEDS: Cholecalciferol (Vitamin D3) 400 UNITS TAB PO SCH (08:55)
[2020-02-08] MEDS: Ascorbic Acid 500 mg Chewable Tablet PO SCH (08:55)
[2020-02-08] MEDS: Benzonatate 100 MG CAP PO SCH ×3 (08:55→21:14)
[2020-02-08] MEDS: Enoxaparin Sodium 40 MG/0.4 ML SYRINGE SC SCH (08:56)
[2020-02-08] MEDS: Zinc Sulfate 220 MG CAP PO SCH (08:56)
[2020-02-08] MEDS: REMDESIVIR (EUA) 100 MG in Sodium Chloride 0.9% 250 ML 230 ML IV SCH (13:05)
--- NOTE | 2020-02-08 16:32 | PDOC.HOSPP ---
- Subjective Encounter Date: 02/08/20 Encounter Time: 13:00 Subjective: F/u: COVID Per nursing, the patient had desaturated overnight on 1L to 88%. He was bumped up to 3L. This morning he was weaned down to 1L and ambulated with that and desaturated to 82%. The patient was tachypneic while ambulating and felt very dizzy He complains of cough and unable to get up phlegm stuck in his throat - Objective Vital Signs & Weight: Vital Signs (12 hours) Temp Pulse Pulse Pulse Resp BP BP 02/08/20 14:50 66 62 126/60 120/76 02/08/20 13:15 98.4 F 63 22 H 02/08/20 09:50 20 02/08/20 09:48 24 H 02/08/20 09:45 65 36 H 02/08/20 09:40 20 02/08/20 09:00 97.9 F 65 20 02/08/20 08:00 BP Pulse Ox Pulse Ox Pulse Ox 02/08/20 14:50 91 L 94 L 02/08/20 13:15 115/60 94 L 02/08/20 09:50 93 L 02/08/20 09:48 91 L 02/08/20 09:45 113/56 L 85 L 02/08/20 09:40 92 L 02/08/20 09:00 111/57 L 93 L 02/08/20 08:00 93 L Weight Weight 239 lb 6.4 oz I&O: 02/07/20 02/08/20 02/09/20 06:59 06:59 06:59 Intake Total 1590 1730 500 Output Total 1300 1475 475 Balance 290 255 25 Result Diagrams: 02/05/20 04:31 02/08/20 05:10 Hospitalist ROS - Review of Systems Constitutional: denies: fever, chills - Medication Medications: Active Medications Generic Name Dose Route Start Last Admin Trade Name Freq PRN Reason Stop Dose Admin Acetaminophen 650 mg 02/03/20 10:06 02/05/20 10:51 Acetaminophen 325 Mg Tab PO 650 mg Q6H PRN Administration Headache Ascorbic Acid 1,000 mg 02/03/20 09:00 02/08/20 08:55 Ascorbic Acid 500 Mg Chewable Tablet PO 1,000 mg DAILY SAMANTHA Administration Benzonatate 100 mg 02/03/20 15:00 02/08/20 13:06 Benzonatate 100 Mg Cap PO 100 mg TID SAMANTHA Administration Cholecalciferol 400 units 02/03/20 09:00 02/08/20 08:55 Cholecalciferol (Vitamin D3) 400 Units Tab PO 400 units DAILY SAMANTHA Administration Dexamethasone 6 mg 02/04/20 08:00 02/08/20 08:54 Dexamethasone 4 Mg Tab PO 6 mg QAM-WM SAMANTHA Administration Enoxaparin Sodium 40 mg 02/03/20 09:00 02/08/20 08:56 Enoxaparin Sodium 40 Mg/0.4 Ml Syringe SC 40 mg 0900 SAMANTHA Administration Guaifenesin 200 mg 02/04/20 00:43 02/06/20 21:48 Diabetic Tussin 200 Mg/10 Ml Udcup PO 200 mg Q4H PRN Administration Cough Pantoprazole Sodium 40 mg 02/05/20 21:00 02/08/20 08:56 Pantoprazole 40 Mg Tab PO 40 mg Q12HR SAMANTHA Administration Zinc Sulfate 220 mg 02/03/20 09:00 02/08/20 08:56 Zinc Sulfate 220 Mg Cap PO 220 mg DAILY SAMANTHA Administration - Exam General Appearance: NAD, awake alert Eye: PERRL, anicteric sclera ENT: normocephalic atraumatic, no oropharyngeal lesions Neck: no JVD Heart: RRR, no murmur, no gallops, no rubs Respiratory: CTAB, no wheezes, no rales, no ronchi Gastrointestinal: soft, non-tender, non-distended, normal bowel sounds Extremities: no cyanosis, no clubbing, no edema Skin: normal turgor, no lesions, no rashes Neurological: cranial nerve grossly intact, normal sensation to touch, no wea kness Musculoskeletal: normal tone, normal strength, no muscle wasting Hosp A/P - Plan CT dissection: mild fatty liver. Colonic diverticulosis. Incomplete malrotatio nof the bowel. Chest X ray: interstitial and patchy parenchymal opacities within the lungs bilaterally This is a 59 year old male with past medical history of hypertension who presented with hypotension and syncopal episode, chest pain and abdominal pain, recently COVID+ #Sepsis secondary to pneumonia (COVID vs bacterial) # Acute hypoxic respiratory failure secondary to COVID Pneumonia #COVID infection - he is currently on 1L. He was 85% on room air today . He has completed 5 days of remdesivir. He is still hypoxia and has shortness of breath. I will trial antibiotics with ceftriaxone and azithromycin to see if this helps - will add mucinex - will likely need oxygen to go home with and anticipate may be here until Tuesday due to the holidays Dizziness - likely from hypoxia - supportive care, will monitor Headache -resolving. Tylenol prn and supportive care Hypertension -resume home meds if BP increases > 150 Hypokalemia- resolved Hyponatremia- resolved JESSICA- resolved, likely from hypotension Dispo: d/c hopefully on Tuesday . Will place case management consult in case patient still needs oxygen by Tuesday
[2020-02-08] MEDS ORDERED: cefTRIAXone Sodium 1,000 MG in Syringe 0 ML IVPB SCH (16:45)
[2020-02-08 16:58] LABS: Mean Corpuscular HGB CONC 33.7 g/dL (32.0-36.0); Mean Corpuscular Hemoglobin 29.1 pg (27.0-31.0); Mean Corpuscular Volume 86.4 fL (78.0-98.0); Mean Platelet Volume 7.4 fL (7.4-10.4); Platelet Count 288 thou/uL (130-400); RBC Distribution Width 12.5 % (11.5-14.5); White Blood Cell (WBC) Count 8.4 thou/uL (4.8-10.8)
[2020-02-08] MEDS ORDERED: cefTRIAXone\\ROCEPHIN 1 GM in Sodium Chloride 0.9% 100 ML IVPB SCH (17:00)
[2020-02-08] MEDS ORDERED: Azithromycin 500 MG in Sodium Chloride 0.9% 250 ML 250 ML IVPB SCH (18:00)
[2020-02-08] MEDS: guaiFENesin ER 600 MG TAB PO SCH (18:09)
[2020-02-08] MEDS ORDERED: Azithromycin 250 MG TAB PO SCH (21:00)
[2020-02-08] MEDS: Cefdinir 300 MG CAP PO SCH (21:14)
[2020-02-09] MEDS: guaiFENesin ER 600 MG TAB PO SCH ×2 (06:10→18:43)
[2020-02-09] MEDS: Dexamethasone 4 MG TAB PO SCH (07:21)
[2020-02-09] MEDS: Zinc Sulfate 220 MG CAP PO SCH (07:21)
[2020-02-09] MEDS: Ascorbic Acid 500 mg Chewable Tablet PO SCH (07:22)
[2020-02-09] MEDS: Azithromycin 250 MG TAB PO SCH (07:22)
[2020-02-09] MEDS: Enoxaparin Sodium 40 MG/0.4 ML SYRINGE SC SCH (07:23)
[2020-02-09] MEDS: Cholecalciferol (Vitamin D3) 400 UNITS TAB PO SCH (07:23)
[2020-02-09] MEDS: Cefdinir 300 MG CAP PO SCH ×2 (07:23→20:00)
[2020-02-09] MEDS: Benzonatate 100 MG CAP PO SCH ×5 (07:23→20:18)
[2020-02-09 08:34] LABS: White Blood Cell (WBC) Count 11.4 thou/uL (4.8-10.8)
[2020-02-09 08:48] LABS: Anion Gap 15 mmol/L (10-20); BUN (Urea Nitrogen) 31 mg/dL (8.4-25.7); Calc. Creatinine Clearance 145 mL/min (70-130); Calcium 7.9 mg/dL (7.8-10.44); Carbon Dioxide 23 mmol/L (22-29); Chloride 104 mmol/L (98-107); Glucose 230 mg/dL (70-105); Potassium 4.2 mmol/L (3.5-5.1); Sodium 138 mmol/L (136-145)
[2020-02-09 09:19] LABS: Hemoglobin 13.8 g/dL (14.0-18.0); Mean Corpuscular HGB CONC 33.4 g/dL (32.0-36.0); Mean Corpuscular Volume 86.9 fL (78.0-98.0); Mean Platelet Volume 7.4 fL (7.4-10.4); Platelet Count 290 thou/uL (130-400); RBC Distribution Width 12.5 % (11.5-14.5); Red Blood Cell (RBC) Count 4.76 mill/uL (4.70-6.10)
[2020-02-09 09:21] LABS: Hypersemented Neutrophil SLIGHT; Lymphocytes 7 % (21-51); MDiff Complete? YES; Monocytes 9 % (0-10); Neutrophil 84 % (42-75); Platelet Morphology Comment Appears Adequate
--- NOTE | 2020-02-09 10:04 | PDOC.HOSPP ---
- Subjective Encounter Date: 02/09/20 Encounter Time: 10:03 Subjective: No overnight events. Patient reports he overall feels well. Feels his breathing is stable on 1.5L NC. Denies CP, SOB, abdominal pain. Denies N/V/D. No other concerns of complaints. Chart and medications reviewed. - Objective Vital Signs & Weight: Vital Signs (12 hours) Temp Pulse Resp BP BP BP Pulse Ox 02/09/20 07:43 98.6 F 67 26 H 116/69 96 02/09/20 03:43 98.4 F 57 L 18 143/76 H 97 02/09/20 00:15 97.7 F 60 18 141/76 H 96 Weight Weight 239 lb 6.4 oz I&O: 02/08/20 02/09/20 02/10/20 06:59 06:59 06:59 Intake Total 1730 1590 Output Total 1475 1610 Balance 255 -20 Result Diagrams: 02/12/20 05:00 02/12/20 05:00 Hospitalist ROS - Review of Systems Constitutional: reports: malaise. denies: fever, chills, sweats Eyes: denies: vision change ENT: denies: nose congestion, throat pain Respiratory: reports: cough, shortness of breath Cardiovascular: denies: chest pain, palpitations, light headedness Gastrointestinal: denies: nausea, vomiting, abdominal pain, diarrhea Genitourinary: denies: dysuria Musculoskeletal: denies: neck pain, shoulder pain, arm pain, back pain, hand pain, leg pain, foot pain, other Skin: denies: rash, lesions Neurological: denies: weakness, numbness - Medication Medications: Active Medications Generic Name Dose Route Start Last Admin Trade Name Freq PRN Reason Stop Dose Admin Acetaminophen 650 mg 02/03/20 10:06 02/05/20 10:51 Acetaminophen 325 Mg Tab PO 650 mg Q6H PRN Administration Headache Ascorbic Acid 1,000 mg 02/03/20 09:00 02/09/20 07:22 Ascorbic Acid 500 Mg Chewable Tablet PO 1,000 mg DAILY SAMANTHA Administration Azithromycin 250 mg 02/09/20 09:00 02/09/20 07:22 Azithromycin 250 Mg Tab PO 02/12/20 09:01 250 mg DAILY SAMANTHA Administration Benzonatate 100 mg 02/03/20 15:00 02/09/20 07:42 Benzonatate 100 Mg Cap PO Not Given TID [facility] Cefdinir 300 mg 02/08/20 21:00 02/09/20 07:23 Cefdinir 300 Mg Cap PO 300 mg BID SAMANTHA Administration Cholecalciferol 400 units 02/03/20 09:00 02/09/20 07:23 Cholecalciferol (Vitamin D3) 400 Units Tab PO 400 units DAILY SAMANTHA Administration Dexamethasone 6 mg 02/04/20 08:00 02/09/20 07:21 Dexamethasone 4 Mg Tab PO 6 mg QAM-WM SAMANTHA Administration Enoxaparin Sodium 40 mg 02/03/20 09:00 02/09/20 07:23 Enoxaparin Sodium 40 Mg/0.4 Ml Syringe SC 40 mg 0900 SAMANTHA Administration Guaifenesin 200 mg 02/04/20 00:43 02/06/20 21:48 Diabetic Tussin 200 Mg/10 Ml Udcup PO 200 mg Q4H PRN Administration Cough Guaifenesin 600 mg 02/08/20 18:00 02/09/20 06:10 Guaifenesin Er 600 Mg Tab PO 600 mg 0600,1800 SAMANTHA Administration Pantoprazole Sodium 40 mg 02/05/20 21:00 02/09/20 07:23 Pantoprazole 40 Mg Tab PO 40 mg Q12HR SAMANTHA Administration Zinc Sulfate 220 mg 02/03/20 09:00 02/09/20 07:21 Zinc Sulfate 220 Mg Cap PO 220 mg DAILY SAMANTHA Administration - Exam General Appearance: NAD, awake alert Eye: PERRL, anicteric sclera ENT: normocephalic atraumatic, no oropharyngeal lesions, moist mucosa Neck: supple, symmetric, no JVD, no thyromegaly, no lymphadenopathy, no carotid bruit Heart: RRR, no murmur, no gallops, no rubs, normal peripheral pulses Respiratory: CTAB, no wheezes, no rales, no ronchi, normal chest expansion, no tachypnea, normal percussion Gastrointestinal: soft, non-tender, non-distended, normal bowel sounds, no palpable masses, no hepatomegaly, no splenomegaly, no bruit Extremities: no cyanosis, no clubbing, no edema Skin: normal turgor, no lesions, no rashes Neurological: cranial nerve grossly intact, normal sensation to touch, no weakness, no focal deficits, no new deficit Musculoskeletal: normal tone, normal strength, no muscle wasting Psychiatric: normal affect, normal behavior, A&O x 3 Hosp A/P - Plan COVID-19 Pneumonia Patient presented on 02/02 with SOB and syncopal event found to have COVID pneumonia. Has completed 5 day course of remdesivir, convalescent plasma. Has been started on CAP coverage with ceftriazone and azithromycin. Patient's hypoxia has improved, however still requiring 1.5L NC. Does desaturate off oxygen to 85%. Since patient has done well over the past week, I do believe patient would be a good candidate for home oxygen. He has mostly recovered from his COVID pneumonia, and has lingering oxygen requirement. Plan -Completed course of remdesivir -Continue cefdinir, azithromycin -Continue supplemental oxygen -Tylenol, robitussin prn -CM consult for home oxygen Acute hypoxic respiratory failure Patient with acute hypoxic respiratory failure secondary to moderate to severe COVID-19 pneumonia. Patient with continued oxygen requirement, now on 1.5L NC. Plan -Continue supplemental oxygen -Plan as above Syncope Patient had syncopal episode associated with dizziness in the emergency room on presentation. Likely 2/[address] scan dissection protocol negative, Telemetry with no anbormal rhythms. Resolved with no additional episodes or syptoms. Plan -Resolved after fluids JESSICA Presented with JESSICA. Likely 2/2 dehydration. BUN/Cr now 0.84/230. Now resolved. Hypertension Hx of HTN on home metoprolol and olmesartan/HCT. Will resume metoprolol and hold olmesartan. DVT Prophylaxis: Lovenox FULL CODE Case discussed with Dr. Thomas
--- NOTE | 2020-02-09 12:56 | PDOC.BPN ---
- Brief Progress Note Encounter Date: 02/09/20 Encounter Time: 12:54 Chart reviewed and care discussed with MICHAEL Dunaway. Pt admitted for acute resp failure and continues to have hypoxia. He's received a full course of remdesivir, is on steroids, and received convalescent plasma. Antibiotics were added yesterday because of increasing oxygen requirement - is on azithromycin and cefdinir. On review of home meds - pt is on metoprolol - recommend resuming this. No indication to resume his other home medicine of ARB/diuretic. I agree with progress note documented by MICHAEL Dunaway today.
[2020-02-09] MEDS: Metoprolol Tartrate 25 MG TAB PO SCH (20:00)
[2020-02-10] MEDS: guaiFENesin ER 600 MG TAB PO SCH ×2 (05:15→17:49)
[2020-02-10 05:18] LABS: #Eosinphils 0.1 thou/uL (0.0-0.7); #Lymphocytes 0.6 thou/uL (1.20-3.40); #Monocytes 0.4 thou/uL (0.11-0.59); #Neutrophils 9.4 thou/uL (1.40-6.50); %Basophils 0.1 % (0.0-1.0); %Eosinophils 0.5 % (0.0-10.0); %Lymphocytes 6.1 % (21.0-51.0); %Monocytes 3.5 % (0.0-10.0); %Neutrophils 89.8 % (42.0-75.0); Hemoglobin 13.3 g/dL (14.0-18.0); Mean Corpuscular HGB CONC 33.3 g/dL (32.0-36.0); Mean Corpuscular Hemoglobin 28.7 pg (27.0-31.0); Mean Corpuscular Volume 86.2 fL (78.0-98.0); Mean Platelet Volume 7.4 fL (7.4-10.4); Platelet Count 276 thou/uL (130-400); RBC Distribution Width 12.4 % (11.5-14.5); Red Blood Cell (RBC) Count 4.61 mill/uL (4.70-6.10); White Blood Cell (WBC) Count 10.4 thou/uL (4.8-10.8)
[2020-02-10 05:41] LABS: Anion Gap 15 mmol/L (10-20); BUN (Urea Nitrogen) 26 mg/dL (8.4-25.7); Calc. Creatinine Clearance 149 mL/min (70-130); Calcium 7.7 mg/dL (7.8-10.44); Carbon Dioxide 22 mmol/L (22-29); Chloride 104 mmol/L (98-107); Glucose 262 mg/dL (70-105); Potassium 4.2 mmol/L (3.5-5.1); Sodium 137 mmol/L (136-145)
--- NOTE | 2020-02-10 08:14 | RAD ---
Chest AP view INDICATION: History of Covid pneumonia COMPARISON: February 02, 2020 FINDINGS: Lungs: There is worsening airspace disease in the right lower lobe. Left perihilar airspace opacitie s are slightly less prominent. Cardiac silhouette: The cardiomediastinal silhouette appears within normal limits. Pulmonary vasculature: Normal Pleural spaces: No pleural effusion or pneumothorax is demonstrated. Upper abdomen: No abnormality seen. Osseous structures: No acute osseous abnormality. Additional findings: None. IMPRESSION: Bilateral pneumonia. Worsening airspace disease of the right infrahilar region. Left perihilar opacit ies appear slightly less prominent but do persist from prior study.
[2020-02-10] MEDS: Dexamethasone 4 MG TAB PO SCH (09:48)
[2020-02-10] MEDS: Benzonatate 100 MG CAP PO SCH ×3 (09:49→20:42)
[2020-02-10] MEDS: Metoprolol Tartrate 25 MG TAB PO SCH ×2 (09:49→20:42)
[2020-02-10] MEDS: Cholecalciferol (Vitamin D3) 400 UNITS TAB PO SCH (09:49)
[2020-02-10] MEDS: Azithromycin 250 MG TAB PO SCH (09:49)
[2020-02-10] MEDS: Enoxaparin Sodium 40 MG/0.4 ML SYRINGE SC SCH (09:50)
[2020-02-10] MEDS: Ascorbic Acid 500 mg Chewable Tablet PO SCH (09:50)
[2020-02-10] MEDS: Zinc Sulfate 220 MG CAP PO SCH (09:50)
[2020-02-10] MEDS: Cefdinir 300 MG CAP PO SCH (09:50)
--- NOTE | 2020-02-10 12:26 | PDOC.HOSPP ---
- Subjective Encounter Date: 02/10/20 Encounter Time: 11:00 Subjective: is sitting on bed, comfortable has cough+, no fever is amb to restroom and back his and children have recovered from covid infection - Objective Vital Signs & Weight: Vital Signs (12 hours) Temp Pulse Resp BP Pulse Ox 02/10/20 08:39 98.4 F 72 18 128/68 93 L 02/10/20 08:20 98.3 F 78 93 L 02/10/20 03:36 97.8 F 60 23 H 137/72 94 L Weight Weight 239 lb 6.4 oz I&O: 02/09/20 02/10/20 02/11/20 06:59 06:59 06:59 Intake Total 1590 1000 Output Total 1610 Balance -20 1000 Result Diagrams: 02/10/20 04:51 02/10/20 04:51 Hospitalist ROS - Medication Medications: Active Medications Generic Name Dose Route Start Last Admin Trade Name Freq PRN Reason Stop Dose Admin Acetaminophen 650 mg 02/03/20 10:06 02/05/20 10:51 Acetaminophen 325 Mg Tab PO 650 mg Q6H PRN Administration Headache Ascorbic Acid 1,000 mg 02/03/20 09:00 02/10/20 09:50 Ascorbic Acid 500 Mg Chewable Tablet PO 1,000 mg DAILY SAMANTHA Administration Benzonatate 100 mg 02/03/20 15:00 02/10/20 09:49 Benzonatate 100 Mg Cap PO Not Given TID SAMANTHA Cholecalciferol 400 units 02/03/20 09:00 02/10/20 09:49 Cholecalciferol (Vitamin D3) 400 Units Tab PO 400 units DAILY SAMANTHA Administration Dexamethasone 6 mg 02/04/20 08:00 02/10/20 09:48 Dexamethasone 4 Mg Tab PO 6 mg QAM-WM SAMANTHA Administration Enoxaparin Sodium 40 mg 02/03/20 09:00 02/10/20 09:50 Enoxaparin Sodium 40 Mg/0.4 Ml Syringe SC 40 mg 0900 SAMANTHA Administration Guaifenesin 200 mg 02/04/20 00:43 02/06/20 21:48 Diabetic Tussin 200 Mg/10 Ml Udcup PO 200 mg Q4H PRN Administration Cough Guaifenesin 600 mg 02/08/20 18:00 02/10/20 05:15 Guaifenesin Er 600 Mg Tab PO 600 mg 0600,1800 SAMANTHA Administration Metoprolol Tartrate 25 mg 02/09/20 21:00 02/10/20 09:49 Metoprolol Tartrate 25 Mg Tab PO 25 mg BID SAMANTHA Administration Pantoprazole Sodium 40 mg 02/05/20 21:00 02/10/20 09:50 Pantoprazole 40 Mg Tab PO 40 mg Q12HR SAMANTHA Administration Zinc Sulfate 220 mg 02/03/20 09:00 02/10/20 09:50 Zinc Sulfate 220 Mg Cap PO 220 mg DAILY SAMANTHA Administration - Exam General Appearance: awake alert Eye: PERRL, anicteric sclera ENT: no oropharyngeal lesions, moist mucosa Neck: supple, no JVD Heart: RRR, no murmur Respiratory: no wheezes, rales, rhonchi Gastrointestinal: soft, non-tender, non-distended, normal bowel sounds Extremities: no cyanosis, no edema Neurological: cranial nerve grossly intact, no focal deficits Psychiatric: normal affect, A&O x 3 Hosp A/P (1) Pneumonia due to COVID-19 virus Code(s): U07.1 - COVID-19; J12.89 - OTHER VIRAL PNEUMONIA Status: Acute (2) Acute respiratory failure with hypoxia Code(s): J96.01 - ACUTE RESPIRATORY FAILURE WITH HYPOXIA Status: Acute (3) DM type 2 (diabetes mellitus, type 2) Status: Acute Qualifiers: Diabetes mellitus fpc insulin use: without tank terminal gauger use (4) Obesity (BMI 30-39.9) Code(s): E66.9 - OBESITY, UNSPECIFIED Status: Chronic (5) HTN (hypertension) Code(s): I10 - ESSENTIAL (PRIMARY) HYPERTENSION Status: Chronic Qualifiers: Hypertension type: essential hypertension Qualified Code(s): I10 - Essential (primary) hypertension - Plan is on dexamethasone, nasal canula O2, has large amount of infiltrates on cxr, will need home O2 x 4 weeks continue lopressor, protonix, add metformin for dm (likely new onset with steroids contributing a bit) dc all antibiotics, will add if he develops fever, is currently on 1 ltr by [place] dc plan in am on home O2 encourage ambulation in the room
[2020-02-11 05:43] LABS: #Lymphocytes 0.8 thou/uL (1.20-3.40); #Monocytes 0.4 thou/uL (0.11-0.59); #Neutrophils 9.5 thou/uL (1.40-6.50); %Basophils 0.2 % (0.0-1.0); %Eosinophils 0.2 % (0.0-10.0); %Lymphocytes 7.2 % (21.0-51.0); %Neutrophils 88.3 % (42.0-75.0); Hemoglobin 13.1 g/dL (14.0-18.0); Mean Corpuscular HGB CONC 33.7 g/dL (32.0-36.0); Mean Corpuscular Hemoglobin 28.8 pg (27.0-31.0); Mean Corpuscular Volume 85.4 fL (78.0-98.0); Mean Platelet Volume 7.4 fL (7.4-10.4); Platelet Count 283 thou/uL (130-400); RBC Distribution Width 12.5 % (11.5-14.5); Red Blood Cell (RBC) Count 4.54 mill/uL (4.70-6.10); White Blood Cell (WBC) Count 10.7 thou/uL (4.8-10.8)
[2020-02-11] MEDS: guaiFENesin ER 600 MG TAB PO SCH ×2 (05:59→17:54)
[2020-02-11 06:07] LABS: Anion Gap 14 mmol/L (10-20); BUN (Urea Nitrogen) 23 mg/dL (8.4-25.7); Calc. Creatinine Clearance 149 mL/min (70-130); Calcium 7.9 mg/dL (7.8-10.44); Carbon Dioxide 22 mmol/L (22-29); Chloride 104 mmol/L (98-107); Glucose 227 mg/dL (70-105); Potassium 4.2 mmol/L (3.5-5.1); Sodium 136 mmol/L (136-145)
[2020-02-11] MEDS: Dexamethasone 4 MG TAB PO SCH (08:38)
[2020-02-11] MEDS: Ascorbic Acid 500 mg Chewable Tablet PO SCH (08:38)
[2020-02-11] MEDS: Enoxaparin Sodium 40 MG/0.4 ML SYRINGE SC SCH (08:39)
[2020-02-11] MEDS: Benzonatate 100 MG CAP PO SCH ×3 (08:39→22:11)
[2020-02-11] MEDS: Metoprolol Tartrate 25 MG TAB PO SCH ×2 (08:39→22:10)
[2020-02-11] MEDS: Cholecalciferol (Vitamin D3) 400 UNITS TAB PO SCH (08:39)
[2020-02-11] MEDS: Zinc Sulfate 220 MG CAP PO SCH (08:40)
--- NOTE | 2020-02-11 13:38 | PDOC.HOSPP ---
- Subjective Encounter Date: 02/11/20 Encounter Time: 11:15 Subjective: feels better, no sob now is eating and sleeping well amb in room with O2 - Objective Vital Signs & Weight: Vital Signs (12 hours) Temp Pulse Resp BP BP Pulse Ox 02/11/20 08:45 98.2 F 68 20 125/64 92 L 02/11/20 04:35 97.9 F 70 21 H 136/70 94 L Weight Weight 239 lb 6.4 oz I&O: 02/10/20 02/11/20 02/12/20 06:59 06:59 06:59 Intake Total 1000 Balance 1000 Result Diagrams: 02/11/20 05:14 02/11/20 05:14 Hospitalist ROS - Medication Medications: Active Medications Generic Name Dose Route Start Last Admin Trade Name Freq PRN Reason Stop Dose Admin Acetaminophen 650 mg 02/03/20 10:06 02/05/20 10:51 Acetaminophen 325 Mg Tab PO 650 mg Q6H PRN Administration Headache Ascorbic Acid 1,000 mg 02/03/20 09:00 02/11/20 08:38 Ascorbic Acid 500 Mg Chewable Tablet PO 1,000 mg DAILY SAMANTHA Administration Benzonatate 100 mg 02/03/20 15:00 02/11/20 08:39 Benzonatate 100 Mg Cap PO Not Given TID SAMANTHA Cholecalciferol 400 units 02/03/20 09:00 02/11/20 08:39 Cholecalciferol (Vitamin D3) 400 Units Tab PO 400 units DAILY SAMANTHA Administration Dexamethasone 6 mg 02/04/20 08:00 02/11/20 08:38 Dexamethasone 4 Mg Tab PO 6 mg QAM-WM SAMANTHA Administration Enoxaparin Sodium 40 mg 02/03/20 09:00 02/11/20 08:39 Enoxaparin Sodium 40 Mg/0.4 Ml Syringe SC 40 mg 0900 SAMANTHA Administration Guaifenesin 200 mg 02/04/20 00:43 02/06/20 21:48 Diabetic Tussin 200 Mg/10 Ml Udcup PO 200 mg Q4H PRN Administration Cough Guaifenesin 600 mg 02/08/20 18:00 02/11/20 05:59 Guaifenesin Er 600 Mg Tab PO 600 mg 0600,1800 SAMANTHA Administration Metoprolol Tartrate 25 mg 02/09/20 21:00 12/28/20 08:39 Metoprolol Tartrate 25 Mg Tab PO 25 mg BID SAMANTHA Administration Pantoprazole Sodium 40 mg 02/05/20 21:00 02/11/20 08:39 Pantoprazole 40 Mg Tab PO 40 mg Q12HR SAMANTHA Administration Zinc Sulfate 220 mg 02/03/20 09:00 02/11/20 08:40 Zinc Sulfate 220 Mg Cap PO 220 mg DAILY SAMANTHA Administration - Exam General Appearance: awake alert Eye: PERRL, anicteric sclera ENT: no oropharyngeal lesions, moist mucosa Neck: supple, no JVD Heart: RRR, no murmur Respiratory: no wheezes, rales, rhonchi Gastrointestinal: soft, non-tender, non-distended, normal bowel sounds Extremities: no cyanosis, no edema Neurological: cranial nerve grossly intact, no focal deficits Psychiatric: normal affect, A&O x 3 Hosp A/P (1) Pneumonia due to COVID-19 virus Code(s): U07.1 - COVID-19; J12.89 - OTHER VIRAL PNEUMONIA Status: Acute (2) Acute respiratory failure with hypoxia Code(s): J96.01 - ACUTE RESPIRATORY FAILURE WITH HYPOXIA Status: Acute (3) DM type 2 (diabetes mellitus, type 2) Status: Acute Qualifiers: Diabetes mellitus correction insulin use: without correction use (4) Obesity (BMI 30-39.9) Code(s): E66.9 - OBESITY, UNSPECIFIED Status: Chronic (5) HTN (hypertension) Code(s): I10 - ESSENTIAL (PRIMARY) HYPERTENSION Status: Chronic Qualifiers: Hypertension type: essential hypertension Qualified Code(s): I10 - Essential (primary) hypertension - Plan is on dexamethasone, nasal canula O2, has large amount of infiltrates on cxr, will need home O2 x 4 weeks continue lopressor, protonix, add metformin for dm (likely new onset with steroids contributing a bit) dc all antibiotics, will add if he develops fever, is currently on 1 ltr by [place] dc plan home anytime if home O2 is arranged encourage ambulation in the room
--- NOTE | 2020-02-11 16:57 | DIS ---
DATE OF ADMISSION: 02/03/2020 DATE OF DISCHARGE: 02/11/2020 DISCHARGE DISPOSITION: To home. PRIMARY DISCHARGE DIAGNOSES: COVID-19 pneumonia, acute respiratory failure with hypoxia. SECONDARY DISCHARGE DIAGNOSES: Diabetes mellitus type 2, obesity, and hypertension. PROCEDURES DONE DURING HOSPITALIZATION: CT dissection protocol done on the day of admission showed parenchymal lung changes suggestive of COVID-19 pneumonia. Thoracic and abdominal aorta were normal in caliber without dissection. Mild fatty infiltration of liver was seen. Colonic diverticulosis was incidentally noted. Blood cultures x2, no growth. Urine culture, no growth. H and H 13 and 38, platelet count 283, white count of 10, MCV 85. D-dimer was 0.7. Discharge BUN and creatinine are 23 and 0.8, ferritin levels were 445. CRP was 11.8 on , 5.27 on the 08 of February. LFTs were within normal limits. COVID-19 PCR was positive on 02/02/2020. Influenza A and B PCR was negative. DISCHARGE MEDICATIONS: 1. Metoprolol tartrate 25 mg twice daily. 2. Olmesartan with hydrochlorothiazide 40/12.5 mg daily. 3. Dexamethasone 6 mg p.o. daily for another 3 days. 4. DuoNebs 4 times daily p.r.n. 5. Protonix 40 mg p.o. daily. ALLERGIES: NO KNOWN DRUG ALLERGIES. DISCHARGE PLAN: The patient to follow up with his primary care physician, Dr. Coronado, in 1 week. He was also advised to check pulse oximeter twice daily and to call EMS if he were to drop to less than 90%. BRIEF COURSE DURING HOSPITALIZATION: The patient initially got admitted on the 02 of February with complaints of generalized weakness, passing out, and shortness of breath. The patient was exposed to COVID with most of his family having had it. The patient had acute respiratory failure with hypoxia with COVID pneumonia and was placed on oxygen. The patient was placed on steroids along with albuterol inhaler. He has responded well to above measures. He was not given remdesivir due to unknown duration of illness. The patient completed full course of remdesivir. Prior to discharge, he is ambulating with his nasal cannula oxygen and eating well and sleeping well. Case Management consultation was requested for send him home oxygen. Once this was arranged, he will be shortly discharged home. Please see a [id number] documentation for the day of discharge on [employer]. Job ID: [id number]
[2020-02-12 05:37] LABS: #Eosinphils 0.1 thou/uL (0.0-0.7); #Lymphocytes 0.7 thou/uL (1.20-3.40); #Monocytes 0.6 thou/uL (0.11-0.59); #Neutrophils 10.7 thou/uL (1.40-6.50); %Eosinophils 0.9 % (0.0-10.0); %Lymphocytes 5.7 % (21.0-51.0); %Monocytes 4.7 % (0.0-10.0); %Neutrophils 88.8 % (42.0-75.0); Hemoglobin 13.7 g/dL (14.0-18.0); Mean Corpuscular HGB CONC 33.4 g/dL (32.0-36.0); Mean Corpuscular Hemoglobin 28.6 pg (27.0-31.0); Mean Corpuscular Volume 85.6 fL (78.0-98.0); Mean Platelet Volume 7.8 fL (7.4-10.4); Platelet Count 279 thou/uL (130-400); RBC Distribution Width 12.8 % (11.5-14.5); Red Blood Cell (RBC) Count 4.81 mill/uL (4.70-6.10)
[2020-02-12] MEDS: guaiFENesin ER 600 MG TAB PO SCH (05:56)
[2020-02-12 05:59] LABS: Anion Gap 13 mmol/L (10-20); BUN (Urea Nitrogen) 24 mg/dL (8.4-25.7); Calc. Creatinine Clearance 145 mL/min (70-130); Calcium 7.9 mg/dL (7.8-10.44); Carbon Dioxide 25 mmol/L (22-29); Chloride 101 mmol/L (98-107); Glucose 201 mg/dL (70-105); Potassium 3.9 mmol/L (3.5-5.1); Sodium 135 mmol/L (136-145)
[2020-02-12] MEDS: Dexamethasone 4 MG TAB PO SCH (09:30)
[2020-02-12] MEDS: Benzonatate 100 MG CAP PO SCH (09:30)
[2020-02-12] MEDS: Ascorbic Acid 500 mg Chewable Tablet PO SCH (09:30)
[2020-02-12] MEDS: Zinc Sulfate 220 MG CAP PO SCH (09:31)
[2020-02-12] MEDS: Enoxaparin Sodium 40 MG/0.4 ML SYRINGE SC SCH (09:31)
[2020-02-12] MEDS: Cholecalciferol (Vitamin D3) 400 UNITS TAB PO SCH (09:31)
[2020-02-12] MEDS: Metoprolol Tartrate 25 MG TAB PO SCH ×2 (09:31→12:34)
[2020-02-12 12:46] VITALS: BP 121/58; TEMP 97.5
--- NOTE | 2020-02-12 14:15 | PRG ---
DATE OF SERVICE: 02/12/2020 SUBJECTIVE: Apparently being readied for discharge planning. He is having issues with getting the O2 supplementation device for home. Overall better, still [id number] dyspneic after some effort. Cough is less. No headaches. He is able to eat. No diarrhea or genitourinary symptoms. No neurological symptoms. OBJECTIVE: VITAL SIGNS: He has been afebrile and saturations kind of ranging anywhere from 92% to 97% depending on O2 supplementation. He is at 1 L saturating at 97%, on room air drops down to 90 after some effort. BP is 120/50, heart rate 72, breathing 20 times a minute. LUNGS: A few faint crackles, but otherwise breath sounds are pretty normal. HEART: S1, S2 regular rate. ABDOMEN: Soft, not distended. EXTREMITIES: Moves all extremities equally. LABORATORY DATA: White cell count 34635, hemoglobin 13, platelets 279. Creatinine 0.84. Ferritin 445 and CRP 5.27. Chest x-ray with bilateral infiltrates, some areas are worse, some are better. ASSESSMENT: [id number] COVID-19 with some improvement. Finished remdesivir now. He is still on Decadron, to be continued for a total of 10 days approximately. This is about the 14th day of illness, so he should be okay for discharge planning with O2 supplementation and Decadron for a few more days. Job ID: [id number]
== END 2020-02-12 17:45 | disposition home or self-care (01) | DRG 871 ==
LOC: ERS 20:37 → 2SW 02-03 00:34
PROVIDERS: ADMIT Student in an Organized Health Care Education/Training Program; ATTEND Internal Medicine
PROC: 8E0ZXY6 Isolation (ICD-10-PCS; principal; 2020-02-03)
PROC: XW043E5 Introduction of Remdesivir Anti-infective into Central Vein, Percutaneous Approach, New Technology Group 5 (ICD-10-PCS; 2020-02-04)
DX: A41.89 Other specified sepsis (principal); U07.1 COVID-19; J12.89 Other viral pneumonia; J96.01 Acute respiratory failure with hypoxia; E87.1 Hypo-osmolality and hyponatremia; N17.9 Acute kidney failure, unspecified; I10 Essential (primary) hypertension; K46.9 Unspecified abdominal hernia without obstruction or gangrene; E86.0 Dehydration; E66.9 Obesity, unspecified; E11.9 Type 2 diabetes mellitus without complications; E87.6 Hypokalemia; Z79.899 Other long term (current) drug therapy; Z68.37 Body mass index [BMI] 37.0-37.9, adult
CPT/HCPCS: 0240U; 36415; 36416; 36430; 71045; 71275; 72193; 74174; 80048; 80053; 80076; 80306; 80307; 81003; 82565; 82728; 83605; 83615; 83690; 83880; 84450; 84460; 84484; 85025; 85027; 85379; 85652; 86140; 86850; 86900; 86901; 87040; 87086; 93005; 96365; 96366; 96367; 96372; 96374; 96375; C9113; J1100; J1650; J2543; J3370; J3490; J7050; J8540; Q9967

== ENCOUNTER 2020-03-11 08:12 | Outpatient (CLI) | payer OTHER ==
[2020-03-11 17:00] LABS: #Basophils 0.1 10x3/uL (0.0-0.2); #Eosinphils 0.1 10x3/uL (0.0-0.5); #Monocytes 0.6 10x3/uL (0.0-1.1); #Neutrophils 4.7 10x3/uL (1.5-8.4); %Basophils 0.8 % (0.0-2.0); %Eosinophils 1.5 % (0.0-6.0); %Lymphocytes 24.9 % (18.0-47.0); %Neutrophils 63.7 % (40.0-75.0); Hemoglobin 14.1 g/dL (14.0-18.0); Mean Corpuscular HGB CONC 32.6 G/DL (32.0-36.0); Mean Corpuscular Hemoglobin 28.3 PG (27.0-33.0); Mean Corpuscular Volume 86.8 fl (80.0-100.0); Mean Platelet Volume 9.6 fl (7.4-10.4); Platelet Count 284 10x3/uL (130-400); RBC Distribution Width 14.7 % (11.5-14.5); Red Blood Cell (RBC) Count 4.99 10x6/uL (4.40-5.80); White Blood Cell (WBC) Count 7.4 10x3/uL (4.5-11.0)
[2020-03-11 17:45] LABS: Anion Gap 13 mmol/L (10-20); BUN (Urea Nitrogen) 14 mg/dL (8.4-25.7); Calc. Creatinine Clearance 0 mL/min (70-130); Calcium 9.6 mg/dL (7.8-10.44); Carbon Dioxide 24 mmol/L (22-29); Chloride 100 mmol/L (98-107); Glucose 163 mg/dL (70-105); Potassium 4.1 mmol/L (3.5-5.1); Sodium 133 mmol/L (136-145)
[2020-03-12 05:18] LABS: SARS-CoV-2 PCR by NAA Not Detected (NotDetected)
--- NOTE | 2020-03-12 07:20 | EKG ---
Test Reason : PREOP Blood Pressure : / mmHG Vent. Rate : 086 BPM Atrial Rate : 086 BPM P-R Int : 174 ms QRS Dur : 084 ms QT Int : 342 ms P-R-T Axes : 055 028 015 degrees QTc Int : 409 ms Normal sinus rhythm Normal ECG Confirmed by DR. Keli HEALY ([id number]) on 03/12/2020 7:19:56 AM Referred By: CHENTE Confirmed By:DR. Keli HEALY
== END 2020-03-11 08:13 | disposition home or self-care (01) ==
LOC: LABBT 08:12
PROVIDERS: ATTEND Surgery
DX: Z01.818 Encounter for other preprocedural examination (principal); Z20.822 Contact with and (suspected) exposure to COVID-19; K43.2 Incisional hernia without obstruction or gangrene
CPT/HCPCS: 80048; 85025; 87635; 93005; 93010; U0003; U0005

== ENCOUNTER 2020-03-14 09:50 | Day surgery (SDC) | payer OTHER ==
[2020-03-12 13:57] VITALS: BMI 35.2
[~2020-03-14 09:50] MED LIST changes: +Glycopyrrolate 0.2 MG/ML 5 ML SYRINGE ONE; -Iopamidol-370 76% 500 ML 1 ML ONE; +Ketorolac Tromethamine 30 MG/ML VIAL ONE; +Lidocaine 1% PF 5 ML VIAL ONE; +Ondansetron PF 4 MG/2 ML Vial ONE; +Propofol 1,000 MG/100 ML VIAL IV ONE; +Rocuronium Bromide 10 MG/ML (10ML VIAL) ONE
[2020-03-14] MEDS ORDERED: Bupivacaine 0.25% HCL 30 ML VIAL ONE (12:00)
[2020-03-14] MEDS ORDERED: XYLOCAINE 2%-EPI 1:100,000 20 ML VIAL ONE (12:00)
[2020-03-14] MEDS ORDERED: Fentanyl 100 MCG/2 ML VIAL ONE ×3 (12:19→14:28)
[2020-03-14] MEDS ORDERED: Labetalol HCl 100 MG/20 ML VIAL ONE (13:58)
[2020-03-14] MEDS ORDERED: HYDROcodone/Acetaminophen 5/325 mg Tablet ONE (15:34)
--- NOTE | 2020-03-17 13:05 | OP ---
DATE OF PROCEDURE: 03/14/2020 PREOPERATIVE DIAGNOSIS: Incisional hernia. POSTOPERATIVE DIAGNOSIS: Incisional hernia. PROCEDURE PERFORMED: Da Anali laparoscopic incisional hernia repair with mesh, Ventralex ST. ANESTHESIA: General. ESTIMATED BLOOD LOSS: Minimal. COMPLICATIONS: None. SPECIMEN: None. FINDINGS: Incisional hernia. DESCRIPTION OF PROCEDURE: The patient was taken to the operating room and laid supine on the operating table. After general anesthetic was obtained, a Kumar was placed. The abdomen was prepped and draped in a sterile fashion. Left subcostal 5-mm Optiview trocar placed in usual fashion. High-flow pneumoperitoneum was obtained. 11 mm balloon trocar was placed in the left abdomen. An 8-mm robot assist port was placed in the left lower quadrant. The 5-mm subcostal switched out to an 8 in the left upper quadrant. All adhesions were taken down, exposing the upper midline incisional hernia. There was previous mesh in this area, the new hernias on the edge of the mesh. The peritoneum was taken down exposing the posterior fascia. The fascial defect closed using #1 V-Loc running. This closed the defect primarily under no tension. An 8 cm [place] Ventralex mesh was brought into the sterile field. The exposed mesh side was placed up against the posterior fascia. The nonadherent area was left down against the abdominal contents. This mesh was sewn via 2-0 V-Loc circumferentially around to the posterior fascia. All port sites were infiltrated using local anesthetic. All ports were removed under camera visualization. Pneumoperitoneum was let down. 4-0 Monocryl and Dermabond were used to close the skin incision. The patient was sent to Recovery in stable condition. All instrument counts, needle counts, and lap counts were correct. Job ID: [id number]
== END 2020-03-14 16:35 | disposition home or self-care (01) ==
LOC: SDC 09:50
PROVIDERS: ATTEND Surgery
PROC: 0WUF4JZ Supplement Abdominal Wall with Synthetic Substitute, Percutaneous Endoscopic Approach (ICD-10-PCS; principal; 2020-03-14)
DX: K43.2 Incisional hernia without obstruction or gangrene (principal)
CPT/HCPCS: C1781; J0690; J1885; J2405; J2704; J3010; S0020

== ENCOUNTER 2021-12-07 06:17 | Inpatient (IN) | payer OTHER ==
[2021-12-07 08:24] LABS: #Lymphocytes 0.9 thou/uL (1.20-3.40); #Monocytes 0.7 thou/uL (0.11-0.59); #Neutrophils 14.6 thou/uL (1.40-6.50); %Basophils 0.3 % (0.0-1.0); %Eosinophils 0.2 % (0.0-10.0); %Lymphocytes 5.3 % (21.0-51.0); %Monocytes 4.3 % (0.0-10.0); Hemoglobin 17.1 g/dL (14.0-18.0); Mean Corpuscular HGB CONC 32.8 g/dL (32.0-36.0); Mean Corpuscular Hemoglobin 29.7 pg (27.0-31.0); Mean Corpuscular Volume 90.6 fL (78.0-98.0); Mean Platelet Volume 7.9 fL (7.4-10.4); Platelet Count 272 thou/uL (130-400); Red Blood Cell (RBC) Count 5.77 mill/uL (4.70-6.10); White Blood Cell (WBC) Count 16.2 thou/uL (4.8-10.8)
[2021-12-07 08:56] LABS: ALT (SGPT) 28 U/L (8-55); AST (SGOT) 24 U/L (5-34); Albumin 4.8 g/dL (3.4-4.8); Alkaline Phosphatase 89 U/L (40-110); Anion Gap 16 mmol/L (10-20); BUN (Urea Nitrogen) 16 mg/dL (8.4-25.7); Calc. Creatinine Clearance 0 mL/min (70-130); Calcium 10.2 mg/dL (7.8-10.44); Carbon Dioxide 24 mmol/L (23-31); Chloride 100 mmol/L (98-107); Estimated GFR 77; Globulin 3.2 g/dL (2.4-3.5); Glucose 219 mg/dL (80-115); Lipase 9 U/L (8-78); Potassium 4.2 mmol/L (3.5-5.1); Sodium 136 mmol/L (136-145)
[2021-12-07] MEDS ORDERED: Ondansetron PF 4 MG/2 ML Vial ONE ×2 (10:39→10:40)
[2021-12-07] MEDS ORDERED: Morphine 4 MG/ML VIAL ONE (10:39)
[2021-12-07] MEDS ORDERED: Benzocaine 20% Spray 60 ML CAN ONE (11:12)
[2021-12-07] MEDS ORDERED: Morphine 4 MG/ML VIAL SLOW IVP PRN (11:51)
[2021-12-07] MEDS ORDERED: Sodium Chloride 0.9% 1,000 ML IV SCH (12:00)
[2021-12-07] MEDS ORDERED: Iopamidol-370 76% 500 ML 1 ML ONE (12:14)
[2021-12-07 12:23] LABS: Magnesium 1.9 mg/dL (1.6-2.6); Phosphorus 2.6 mg/dL (2.3-4.7)
[2021-12-07 14:55] VITALS: BMI 38.7
[2021-12-07] MEDS: Ondansetron PF 4 MG/2 ML Vial IVP PRN (15:55)
[2021-12-07] MEDS: Labetalol HCl 100 MG/20 ML VIAL SLOW IVP PRN (18:45)
[2021-12-07] MEDS: Morphine 4 MG/ML VIAL SLOW IVP PRN (21:03)
[2021-12-08] MEDS: Morphine 4 MG/ML VIAL SLOW IVP PRN ×2 (02:50→11:53)
[2021-12-08] MEDS: Ondansetron PF 4 MG/2 ML Vial IVP PRN (02:50)
[2021-12-08 06:27] LABS: #Monocytes 0.9 thou/uL (0.11-0.59); #Neutrophils 6.6 thou/uL (1.40-6.50); %Basophils 0.4 % (0.0-1.0); %Eosinophils 0.3 % (0.0-10.0); %Lymphocytes 11.3 % (21.0-51.0); %Monocytes 10.1 % (0.0-10.0); %Neutrophils 77.9 % (42.0-75.0); Hemoglobin 15.4 g/dL (14.0-18.0); Mean Corpuscular HGB CONC 32.2 g/dL (32.0-36.0); Mean Corpuscular Hemoglobin 29.7 pg (27.0-31.0); Mean Corpuscular Volume 92.1 fl (78.0-98.0); Mean Platelet Volume 7.7 fL (7.4-10.4); Platelet Count 233 thou/uL (130-400); RBC Distribution Width 13.2 % (11.5-14.5); Red Blood Cell (RBC) Count 5.19 mill/uL (4.70-6.10); White Blood Cell (WBC) Count 8.5 thou/uL (4.8-10.8)
[2021-12-08 06:45] LABS: Anion Gap 14 mmol/L (10-20); BUN (Urea Nitrogen) 21 mg/dL (8.4-25.7); Calc. Creatinine Clearance 141 mL/min (70-130); Calcium 8.5 mg/dL (7.8-10.44); Carbon Dioxide 23 mmol/L (23-31); Chloride 104 mmol/L (98-107); Estimated GFR 98; Glucose 182 mg/dL (80-115); Potassium 4.3 mmol/L (3.5-5.1); Sodium 137 mmol/L (136-145)
[2021-12-08] MEDS: Pantoprazole 40 MG VIAL IVP SCH (08:33)
[2021-12-08] MEDS: Labetalol HCl 100 MG/20 ML VIAL SLOW IVP PRN ×2 (08:37→17:20)
[2021-12-08] MEDS ORDERED: Metoclopramide HCl 10 MG/2 ML VIAL IVP PRN (11:21)
[2021-12-08] MEDS: D5 1/2 NS w/20 mEq KCL 1,000 ML IV SCH ×2 (11:53→21:29)
[2021-12-08] MEDS: Ketorolac Tromethamine 30 MG/ML VIAL IVP PRN ×2 (17:08→23:58)
[2021-12-08] MEDS ORDERED: hydrALAZINE 20 MG/ML VIAL SLOW IVP PRN (17:31)
[2021-12-09] MEDS: D5 1/2 NS w/20 mEq KCL 1,000 ML IV SCH ×3 (04:23→21:42)
[2021-12-09 06:51] LABS: #Eosinphils 0.2 thou/uL (0.0-0.7); #Monocytes 0.6 thou/uL (0.11-0.59); #Neutrophils 3.4 thou/uL (1.40-6.50); %Basophils 0.1 % (0.0-1.0); %Eosinophils 3.1 % (0.0-10.0); %Lymphocytes 18.7 % (21.0-51.0); %Monocytes 11.3 % (0.0-10.0); %Neutrophils 66.8 % (42.0-75.0); Hemoglobin 13.5 g/dL (14.0-18.0); Mean Corpuscular HGB CONC 33.1 g/dL (32.0-36.0); Mean Corpuscular Hemoglobin 30.5 pg (27.0-31.0); Mean Corpuscular Volume 92.2 fl (78.0-98.0); Mean Platelet Volume 7.4 fL (7.4-10.4); Platelet Count 193 thou/uL (130-400); Red Blood Cell (RBC) Count 4.42 mill/uL (4.70-6.10); White Blood Cell (WBC) Count 5.2 thou/uL (4.8-10.8)
[2021-12-09 07:20] LABS: Anion Gap 10 mmol/L (10-20); BUN (Urea Nitrogen) 25 mg/dL (8.4-25.7); Calc. Creatinine Clearance 150 mL/min (70-130); Calcium 8.2 mg/dL (7.8-10.44); Carbon Dioxide 25 mmol/L (23-31); Chloride 105 mmol/L (98-107); Estimated GFR 100; Glucose 159 mg/dL (80-115); Sodium 136 mmol/L (136-145)
[2021-12-09] MEDS: Pantoprazole 40 MG VIAL IVP SCH (08:18)
[2021-12-09] MEDS ORDERED: MD-Gastroview 120 ML BOT ONE (10:01)
[2021-12-09] MEDS: Ketorolac Tromethamine 30 MG/ML VIAL IVP PRN (12:45)
[2021-12-09] MEDS: Morphine 4 MG/ML VIAL SLOW IVP PRN (23:05)
[2021-12-10] MEDS: D5 1/2 NS w/20 mEq KCL 1,000 ML IV SCH ×2 (00:35→10:18)
[2021-12-10 06:42] LABS: #Eosinphils 0.3 thou/uL (0.0-0.7); #Lymphocytes 1.2 thou/uL (1.20-3.40); #Monocytes 0.6 thou/uL (0.11-0.59); #Neutrophils 4.4 thou/uL (1.40-6.50); %Basophils 0.4 % (0.0-1.0); %Eosinophils 4.7 % (0.0-10.0); %Lymphocytes 17.8 % (21.0-51.0); %Monocytes 9.8 % (0.0-10.0); %Neutrophils 67.3 % (42.0-75.0); Hemoglobin 13.7 g/dL (14.0-18.0); Mean Corpuscular HGB CONC 31.4 g/dL (32.0-36.0); Mean Corpuscular Hemoglobin 29.4 pg (27.0-31.0); Mean Corpuscular Volume 93.9 fl (78.0-98.0); Mean Platelet Volume 7.6 fL (7.4-10.4); Platelet Count 196 thou/uL (130-400); Red Blood Cell (RBC) Count 4.64 mill/uL (4.70-6.10); White Blood Cell (WBC) Count 6.6 thou/uL (4.8-10.8)
[2021-12-10 07:11] LABS: Anion Gap 12 mmol/L (10-20); BUN (Urea Nitrogen) 21 mg/dL (8.4-25.7); Calc. Creatinine Clearance 158 mL/min (70-130); Calcium 8.3 mg/dL (7.8-10.44); Carbon Dioxide 19 mmol/L (23-31); Chloride 107 mmol/L (98-107); Estimated GFR 101; Glucose 134 mg/dL (80-115); Potassium 4.3 mmol/L (3.5-5.1); Sodium 134 mmol/L (136-145)
[2021-12-10] MEDS: Pantoprazole 40 MG VIAL IVP SCH (10:18)
[2021-12-10 11:36] VITALS: BP 165/90; TEMP 98.5
== END 2021-12-10 11:47 | disposition home or self-care (01) | DRG 390 ==
LOC: ERS 06:17 → T4-A 12:44
PROVIDERS: ADMIT Internal Medicine; ATTEND Hospitalist
DX: K56.51 Intestinal adhesions [bands], with partial obstruction (principal); Z20.822 Contact with and (suspected) exposure to COVID-19; I10 Essential (primary) hypertension; E11.65 Type 2 diabetes mellitus with hyperglycemia; Z66 Do not resuscitate; K59.00 Constipation, unspecified; Z90.49 Acquired absence of other specified parts of digestive tract; Z79.899 Other long term (current) drug therapy; Z85.028 Personal history of other malignant neoplasm of stomach
CPT/HCPCS: 36415; 71045; 74177; 74250; 80048; 80053; 82550; 83605; 83690; 83735; 84100; 85025; 87040; 93005; 96361; 96374; 96375; C9113; J1885; J2270; J2405; J2765; J3480; J7050; Q9963; Q9967; U0003; U0005